=== PATIENT | female | born 1960 | race African-American/Black ===

== ENCOUNTER 2016-11-04 20:49 | Emergency (ER) | payer SELFPAY ==
[~2016-11-04] VITALS: Ht 170.2 cm; Wt 73.9 kg
[~2016-11-04 20:49] MED LIST: ACET-704 PO; CYCL10TA2 PO; HYDR-2758 PO; HYDR50TA6 PO; IBUP-1007 PO; METH750T2 PO
[2016-11-04 21:35] LABS: BASO # 0.1 x10^3/uL (0.0-0.2); BASO % 1 % (0-3); EOS % 1 % (0-3); HEMATOCRIT 41.8 % (36.0-47.0); HEMOGLOBIN 14.4 g/dL (12.0-15.5); LYMPH # 2.7 x10^3/uL (1.0-4.8); LYMPH % 43 % (24-48); MEAN CORPUSCULAR HEMOGLOBIN 36 pg (25-35); MEAN CORPUSCULAR HGB CONC 35 g/dL (31-37); MEAN CORPUSCULAR VOLUME 104 fL (79-100); MONO % 8 % (0-9); NEUT % 48 % (31-73); PLATELET COUNT 188 x10^3/uL (140-400); RED BLOOD COUNT 4.03 x10^6/uL (3.50-5.40); WHITE BLOOD COUNT 6.4 x10^3/uL (4.0-11.0)
[2016-11-04] MEDS ORDERED: CYCLOBENZAPRINE 10 MG TABLET. PO ONE (21:45)
[2016-11-04] MEDS ORDERED: KETOROLAC 15 MG/ML VIAL. IV ONE (21:45)
[2016-11-04 21:49] LABS: CALCIUM 9.5 mg/dL (8.5-10.1); CREATININE 0.8 mg/dL (0.6-1.0); GFR 89.5; POTASSIUM 3.1 mmol/L (3.5-5.1)
[2016-11-04 21:55] LABS: ALBUMIN 4.3 g/dL (3.4-5.0); ALBUMIN/GLOBULIN RATIO 1.1 (1.0-1.7); TOTAL BILIRUBIN 0.4 mg/dL (0.2-1.0); TOTAL PROTEIN 8.2 g/dL (6.4-8.2)
[2016-11-04] MEDS ORDERED: TRAM-48 PO (22:13)
[2016-11-04] MEDS ORDERED: CYCL10TA2 PO (22:13)
[2016-11-04] MEDS ORDERED: IBUP-1007 PO (22:13)
--- NOTE | 2016-11-04 22:13 | PHYS DOC ---
Past Medical History Past Medical History: Heart Disease, Hypertension Past Surgical History: Pacemaker Alcohol Use: Occasionally Drug Use: None Adult General Chief Complaint Chief Complaint: CHEST PAIN HPI HPI Patient is a 56 year old female who presents to the ER today complaining of sciatica pain. Patient is complaining of pain to her left lower extremity radiating down to her toes. Patient reports that she's had this pain for approximately 2 weeks now and is getting worse. Patient reports that she has been taking ibuprofen and Tylenol without any significant relief in her discomfort. Patient denies any other symptomatology other than some right-sided chest wall pain over the site of her new pacemaker that was placed in 2014. Patient denies any fevers shakes chills nausea vomiting diarrhea. Patient denies any loss of bowel or bladder function. Patient denies any weakness to her lower extremities. Patient reports that she has been diagnosed with sciatica in the past and usually ibuprofen helps however over the last couple weeks and has not helped. Patient reports that she has a history of heart problems which required a pacemaker but she is not able to elicit any further. Patient denies any history of hypertension diabetes CHF COPD liver longer kidney problems. Patient denies any abdominal surgeries. Patient does smoke and does drink no drugs. Patient is not allergic to any medications. Patient reports that she has been drinking earlier today with her secondary to celebrating for a upcoming wedding. Physical exam is a well-developed well-nourished female in no acute distress who presents here today with pain to her left lower starry. Patient has tenderness to palpation to her left sciatic region. Patient's neurological exam was normal. Patient's motor strength is 5 out of 5. Sensation intact to light touch and pinprick. Patient also is tenderness to palpation to her right anterior chest wall. Patient's ER workup was significant for normal labs. Patient had a CBC chemistry and troponin that were all normal. Patient's chest x-ray was unremarkable. Patient's EKG revealed normal sinus rhythm at a heart rate of [address]-T wave abnormalities. There is no evidence of ST elevation [place]. Assessment and plan This is a 56-year-old female who presents to the ER today complaining of sciatica type pain. Patient given Toradol IV as well as Flexeril. Patient be discharged home with a prescription for Flexeril and ibuprofen and Ultram to assist her until she is able see Dr. Dumont. Hypokalemia patient will be given by mouth potassium and will be instructed on dietary supplementation. Noncardiac chest pain. Patient's reproducible anterior chest wall pain on the right side. This is over the site of her pacemaker. This pain will also be treated with the ibuprofen and Ultram that she is receiving for her hip. Patient be discharged home in stable condition. Return precautions were discussed with the patient. Tobacco cessation as well as alcohol cessation were discussed with the patient as well as her significant other. Review of Systems Review of Systems Constitutional: Denies fever or chills [] Eyes: Denies change in visual acuity, redness, or eye pain [] All other review systems are negative except as documented in the history of present illness portion Current Medications Current Medications Current Medications Medications (Trade) Dose Ordered Sig/Evelyne Start Time Stop Time Status Last Admin Dose Admin Cyclobenzaprine HCl (Flexeril) 10 mg 1X ONCE 11/04/16 21:45 11/04/16 21:46 DC 11/04/16 21:48 10 MG Ketorolac Tromethamine (Toradol) 15 mg 1X ONCE 11/04/16 21:45 11/04/16 21:46 DC 11/04/16 21:48 15 MG Allergies Allergies Allergies Coded Allergies Type Severity Reaction Last Updated Verified No Known Drug Allergies 08/17/13 No Physical Exam Physical Exam Constitutional: Well developed, well nourished, no acute distress, non-toxic appearance. [] HENT: Normocephalic, atraumatic, bilateral external ears normal, oropharynx moist, no oral exudates, nose normal. [] Eyes: PERRLA, EOMI, conjunctiva normal, no discharge. [] Neck: Normal range of motion, no tenderness, supple, no stridor. [] Cardiovascular:Heart rate regular rhythm, Lungs & Thorax: Bilateral breath sounds clear to auscultation 100% reproducible tenderness to palpation to her right anterior chest wall. [] Abdomen: Bowel sounds normal, soft, no tenderness, no masses, no pulsatile masses. [] Skin: Warm, dry, no erythema, no rash. [] Back: No tenderness, no CVA tenderness. [] Extremities: See above., no cyanosis, no clubbing, ROM intact, no edema. [] Neurologic: Alert and oriented X 3, normal motor function, normal sensory function, no focal deficits noted. [] Psychologic: Affect normal, judgement normal, mood normal. [] Current Patient Data Vital Signs Vital Signs Date Time Temp Pulse Resp B/P (MAP) Pulse Ox O2 Delivery O2 Flow Rate FiO2 11/04/16 21:10 97.7 73 20 156/98 (117) 98 Room Air 97.7 Lab Values Laboratory Tests Test 11/04/16 21:22 White Blood Count 6.4 x10^3/uL (4.0-11.0) Red Blood Count 4.03 x10^6/uL (3.50-5.40) Hemoglobin 14.4 g/dL (12.0-15.5) Hematocrit 41.8 % (36.0-47.0) Mean Corpuscular Volume 104 fL (79-100) H Mean Corpuscular Hemoglobin 36 pg (25-35) H Mean Corpuscular Hemoglobin Concent 35 g/dL (31-37) Red Cell Distribution Width 15.0 % (11.5-14.5) H Platelet Count 188 x10^3/uL (140-400) Neutrophils (%) (Auto) 48 % (31-73) Lymphocytes (%) (Auto) 43 % (24-48) Monocytes (%) (Auto) 8 % (0-9) Eosinophils (%) (Auto) 1 % (0-3) Basophils (%) (Auto) 1 % (0-3) Neutrophils # (Auto) 3.1 x10^3uL (1.8-7.7) Lymphocytes # (Auto) 2.7 x10^3/uL (1.0-4.8) Monocytes # (Auto) 0.5 x10^3/uL (0.0-1.1) Eosinophils # (Auto) 0.1 x10^3/uL (0.0-0.7) Basophils # (Auto) 0.1 x10^3/uL (0.0-0.2) Sodium Level 144 mmol/L (136-145) Potassium Level 3.1 mmol/L (3.5-5.1) L Chloride Level 101 mmol/L (98-107) Carbon Dioxide Level 26 mmol/L (21-32) Anion Gap 17 (6-14) H Blood Urea Nitrogen 10 mg/dL (7-20) Creatinine 0.8 mg/dL (0.6-1.0) Estimated GFR (Cockcroft-Gault) 89.5 BUN/Creatinine Ratio 13 (6-20) Glucose Level 85 mg/dL (70-99) Calcium Level 9.5 mg/dL (8.5-10.1) Total Bilirubin 0.4 mg/dL (0.2-1.0) Aspartate Amino Transferase (AST) 95 U/L (15-37) H Alanine Aminotransferase (ALT) 62 U/L (14-59) H Alkaline Phosphatase 110 U/L (46-116) Troponin I Quantitative < 0.017 ng/mL (0.000-0.055) Total Protein 8.2 g/dL (6.4-8.2) Albumin 4.3 g/dL (3.4-5.0) Albumin/Globulin Ratio 1.1 (1.0-1.7) Laboratory Tests 11/04/16 21:22 Laboratory Tests 11/04/16 21:22 EKG EKG [] Radiology/Procedures Radiology/Procedures [] Course & Med Decision Making Course & Med Decision Making Pertinent Labs and Imaging studies reviewed. (See chart for details) [] Dragon Disclaimer Dragon Disclaimer This electronic medical record was generated, in whole or in part, using a voice recognition dictation system. Departure Departure Impression: Primary Impression: Sciatica, left side Additional Impressions: Non-cardiac chest pain Hypokalemia Disposition: 01 HOME, SELF-CARE Condition: IMPROVED Referrals: HOLLIE DUMONT MD (PCP) Patient Instructions: Hypokalemia, Sciatica Scripts Tramadol Hcl (ULTRAM) 50 Mg Tablet 1 TAB PO Q6HRS, #14 TAB Prov: FLORENCE ESCOBAR MD 11/04/16 Ibuprofen (IBUPROFEN) 600 Mg Tablet 600 MG PO PRN Q6HRS Y for PAIN, #20 TAB Prov: FLORENCE ESCOBAR MD 11/04/16 Cyclobenzaprine Hcl (CYCLOBENZAPRINE HCL) 10 Mg Tablet 10 MG PO TID Y for MUSCLE PAIN, #20 TAB Prov: FLORENCE ESCOBAR MD 11/04/16 Problem Qualifiers FLORENCE ESCOBAR MD Nov 04, 2016 22:13
[2016-11-04 22:15] VITALS: BP 149/84
[2016-11-04] MEDS ORDERED: POTASSIUM CHLORIDE 20 MEQ TABLET.ER. PO ONE (22:15)
--- NOTE | 2016-11-05 08:22 | RAD ---
AP portable chest radiograph 11/04/2016 Clinical History: Chest pain since earlier today. An AP portable erect digital radiograph of the chest was obtained. Comparison study is dated 12/07/2013. A pacemaker is unchanged in position. The cardiac silhouette is borderline enlarged. The thoracic aorta is tortuous. Atherosclerotic calcification of the thoracic aorta is seen. No acute pulmonary infiltrate is noted. No pneumothorax or pleural effusion is seen. Degenerative changes are seen involving the thoracic spine and both shoulders. Impression: No acute abnormality is seen.
--- NOTE | 2016-11-05 09:47 | EKG ---
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
== END 2016-11-04 22:25 | disposition home or self-care (01) ==
LOC: ER 20:49
DX: M54.32 Sciatica, left side (principal); R07.89 Other chest pain; E87.6 Hypokalemia; M79.605 Pain in left leg; I11.9 Hypertensive heart disease without heart failure; Z95.0 Presence of cardiac pacemaker
CPT/HCPCS: 36415; 71010; 80053; 84484; 85027; 93005; 96374; 99285; J1885

== ENCOUNTER 2017-03-15 08:06 | Emergency (ER) | payer SELFPAY ==
[~2017-03-15] VITALS: Ht 167.6 cm; Wt 83.5 kg
[~2017-03-15 08:06] MED LIST changes: +TRAM-48 PO
--- NOTE | 2017-03-15 08:12 | PHYS DOC ---
Past Medical History Past Medical History: Heart Disease, Hypertension Past Surgical History: Pacemaker Alcohol Use: Occasionally Drug Use: None Adult General Chief Complaint Chief Complaint: FACE PROBLEM HPI HPI Patient is a 56 year old -Mongol[place] female who presents with facial swelling. She states that her dental implants the frontal aspect of her teeth broke out about a week and a half ago. She states she saw dentist a few days ago and had initial consultation as an appointment on Thursday. She states yesterday morning she woke up and noticed facial swelling with her eye just about swollen shut and the right side of her face, around her right cheek. She used hot packs and states actually the swelling has improved today. She denies any fevers chills nausea or vomiting, or changes in her voice. She states she is breathing fine and has no trouble swallowing. She is concerned that there could be an infection from her teeth and came to the ER. He denies being on any medications per she has been taking Advil [id number] for her pain and swelling. She is on no medications and therefore I do not suspect angioedema. Review of Systems Review of Systems Constitutional: Denies fever or chills [] Eyes: Denies change in visual acuity, redness, or eye pain [] HENT: Denies nasal congestion or sore throat [] Respiratory: Denies cough or shortness of breath [] Cardiovascular: No additional information not addressed in HPI [] GI: Denies abdominal pain, nausea, vomiting, bloody stools or diarrhea [] : Denies dysuria or hematuria [] Musculoskeletal: Denies back pain or joint pain [] Integument: Denies rash or skin lesions [] Neurologic: Denies headache, focal weakness or sensory changes [] Endocrine: Denies polyuria or polydipsia [] Current Medications Current Medications Current Medications Medications (Trade) Dose Ordered Sig/Evelyne Start Time Stop Time Status Last Admin Dose Admin Clindamycin HCl (Cleocin) 300 mg 1X ONCE 03/15/17 08:45 03/15/17 08:46 03/15/17 08:42 300 MG Allergies Allergies Allergies Coded Allergies Type Severity Reaction Last Updated Verified No Known Drug Allergies 08/17/13 No Physical Exam Physical Exam Constitutional: Well developed, well nourished, no acute distress, non-toxic appearance. [] HENT: Normocephalic, atraumatic, bilateral external ears normal, oropharynx moist, no oral exudates, nose normal. Tender palpation over the right maxillary sinus with swelling below the eye to the upper lip. No Adán angina appreciated , no cervical lymphadenopathy appreciated, posterior pharynx clear. Eyes: PERRLA, EOMI, conjunctiva normal, no discharge. [] Neck: Normal range of motion, no tenderness, supple, no stridor. [] Cardiovascular:Heart rate regular rhythm, no murmur [] Lungs & Thorax: Bilateral breath sounds clear to auscultation [] Abdomen: Bowel sounds normal, soft, no tenderness, no masses, no pulsatile masses. [] Skin: Warm, dry, no erythema, no rash. [] Back: No tenderness, no CVA tenderness. [] Extremities: No tenderness, no cyanosis, no clubbing, ROM intact, no edema. [] Neurologic: Alert and oriented X 3, normal motor function, normal sensory function, no focal deficits noted. [] Psychologic: Affect normal, judgement normal, mood normal. [] Current Patient Data Vital Signs Vital Signs Date Time Temp Pulse Resp B/P (MAP) Pulse Ox O2 Delivery O2 Flow Rate FiO2 03/15/17 08:27 98.6 90 19 153/99 (117) 100 Room Air 98.6 EKG EKG [] Radiology/Procedures Radiology/Procedures [] Impressions: Dental infection with facial swelling Course & Med Decision Making Course & Med Decision Making Pertinent Labs and Imaging studies reviewed. (See chart for details) Vitals are normal, she does not have a fever. She does not have trismus, change in her voice, any signs of Adán angina. We'll start with clindamycin 300 mg and send her home with the same. She is to return back to ER if she has any worsening pain, fevers, trouble swallowing, breathing, changes in her voice. She has a follow-up on Thursday with her dentist. She is agreeable to the plan of being discharged in stable condition at this time. Dragon Disclaimer Dragon Disclaimer This electronic medical record was generated, in whole or in part, using a voice recognition dictation system. Departure Departure Impression: Primary Impression: Dental infection Disposition: HOME, SELF-CARE Condition: STABLE Referrals: HOLLIE EVANS MD (PCP) Patient Instructions: Dental Abscess Additional Instructions: Your swelling in the face is likely because of your dental infection. You will need take and antibiotics for the next 10 days. We gave you the first dose here. You can take Advil 200mg tablets, 3 tablets every 8 hours for the next 4- 5 days for pain and swelling. When you're taking this high dose of Advil please drink a few extra glasses of water. You will need to get your antibiotics filled within next several hours and be sure to get 3 doses in today. You will need to follow-up with your dentist on Thursday. Return to the ER if you have trouble swallowing, troubles talking, he had any changes in her voice such as hoarseness or other concerns. He develop high fevers uncontrolled nausea vomiting then return back to ER. Scripts Clindamycin Hcl (CLINDAMYCIN HCL) 300 Mg Capsule 1 CAP PO TID, #30 CAP Prov: PRATIK ROSA MD 03/15/17 PRATIK ROSA MD Mar 15, 2017 08:12
[2017-03-15 08:27] VITALS: BP 153/99
[2017-03-15] MEDS ORDERED: CLINDAMYCIN HCL 150 MG CAPSULE. PO ONE (08:45)
[2017-03-15] MEDS ORDERED: CLIN300C8 PO (08:51)
== END 2017-03-15 08:54 | disposition home or self-care (01) ==
LOC: ER 08:06
DX: K04.7 Periapical abscess without sinus (principal); I11.9 Hypertensive heart disease without heart failure; Z95.0 Presence of cardiac pacemaker
CPT/HCPCS: 99283

== ENCOUNTER 2017-04-30 20:48 | Emergency (ER) | payer SELFPAY ==
[~2017-04-30] VITALS: Ht 165.1 cm; Wt 83.5 kg
[~2017-04-30 20:48] MED LIST changes: +CLIN300C8 PO
--- NOTE | 2017-04-30 21:07 | PHYS DOC ---
Past Medical History Past Medical History: Pancreatitis Additional Past Medical Histor: DAILY ETOH (05/10) Past Surgical History: Pacemaker Alcohol Use: Heavy Additional Information: DAILY 1 "GINNA SANCHEZ" Drug Use: None Adult General Chief Complaint Chief Complaint: CHEST PAIN HPI HPI Patient is a 56 year old -[place] female is who presents with right sided chest pain shortness of breath. She states the pain is directly over her pacemaker as per she states she's never had pain like this before. She states this started today. Nothing she does makes it better or worse. She states she vomited some blood earlier today. She's drinks daily. She states she follows with her pacemaker. She denies any fevers chills or diarrhea. Review of Systems Review of Systems Constitutional: Denies fever or chills [] Eyes: Denies change in visual acuity, redness, or eye pain [] HENT: Denies nasal congestion or sore throat [] Respiratory: Denies cough, positive for shortness of breath [] Cardiovascular: No additional information not addressed in HPI [] GI: Denies abdominal pain, nausea, vomiting, bloody stools or diarrhea [] : Denies dysuria or hematuria [] Musculoskeletal: Denies back pain or joint pain [] Integument: Denies rash or skin lesions [] Neurologic: Denies headache, focal weakness or sensory changes [] Endocrine: Denies polyuria or polydipsia [] All other systems were reviewed and found to be within normal limits, except as documented in this note. Current Medications Current Medications Current Medications Medications (Trade) Dose Ordered Sig/Evelyne Start Time Stop Time Status Last Admin Dose Admin Fentanyl Citrate (Fentanyl 2ml Vial) 50 mcg PRN Q15MIN PRN 04/30/17 21:15 05/01/17 21:14 04/30/17 21:25 50 MCG Nitroglycerin (Nitrostat) 0.4 mg PRN Q5MIN PRN 04/30/17 21:15 05/01/17 21:14 04/30/17 21:25 0.4 MG Sodium Chloride 1,000 ml @ 1,000 mls/hr Q1H 04/30/17 21:30 04/30/17 22:29 04/30/17 21:25 1,000 MLS/HR Allergies Allergies Allergies Coded Allergies Type Severity Reaction Last Updated Verified No Known Drug Allergies 08/17/13 No Physical Exam Physical Exam Constitutional: Well developed, well nourished, no acute distress, non-toxic appearance. [] HENT: Normocephalic, atraumatic, bilateral external ears normal, oropharynx moist, no oral exudates, nose normal. [] Eyes: PERRLA, EOMI, conjunctiva normal, no discharge. [] Neck: Normal range of motion, no tenderness, supple, no stridor. [] Cardiovascular:Heart rate regular rhythm, no murmur [] Lungs & Thorax: Bilateral breath sounds clear to auscultation [] Abdomen: Bowel sounds normal, soft, no tenderness, no masses, no pulsatile masses. [] Skin: Warm, dry, no erythema, no rash. [] Back: No tenderness, no CVA tenderness. [] Extremities: No tenderness, no cyanosis, no clubbing, ROM intact, no edema. [] Neurologic: Alert and oriented X 3, normal motor function, normal sensory function, no focal deficits noted. [] Psychologic: Affect normal, judgement normal, mood normal. [] Current Patient Data Vital Signs Vital Signs Date Time Temp Pulse Resp B/P (MAP) Pulse Ox O2 Delivery O2 Flow Rate FiO2 04/30/17 21:25 20 04/30/17 21:25 79 149/93 04/30/17 20:48 98.1 97 Room Air 98.1 Lab Values Laboratory Tests Test 04/30/17 20:15 04/30/17 21:05 04/30/17 21:40 D-Dimer (Vandana) 0.36 ug/mlFEU (0.00-0.50) White Blood Count 7.7 x10^3/uL (4.0-11.0) Red Blood Count 4.43 x10^6/uL (3.50-5.40) Hemoglobin 14.5 g/dL (12.0-15.5) Hematocrit 42.7 % (36.0-47.0) Mean Corpuscular Volume 96 fL (79-100) Mean Corpuscular Hemoglobin 33 pg (25-35) Mean Corpuscular Hemoglobin Concent 34 g/dL (31-37) Red Cell Distribution Width 15.7 % (11.5-14.5) H Platelet Count 250 x10^3/uL (140-400) Neutrophils (%) (Auto) 49 % (31-73) Lymphocytes (%) (Auto) 43 % (24-48) Monocytes (%) (Auto) 7 % (0-9) Eosinophils (%) (Auto) 1 % (0-3) Basophils (%) (Auto) 1 % (0-3) Neutrophils # (Auto) 3.8 x10^3uL (1.8-7.7) Lymphocytes # (Auto) 3.3 x10^3/uL (1.0-4.8) Monocytes # (Auto) 0.5 x10^3/uL (0.0-1.1) Eosinophils # (Auto) 0.0 x10^3/uL (0.0-0.7) Basophils # (Auto) 0.1 x10^3/uL (0.0-0.2) Prothrombin Time 13.5 SEC (11.7-14.0) Prothrombin Time INR 1.1 (0.8-1.1) Sodium Level 142 mmol/L (136-145) Potassium Level 3.4 mmol/L (3.5-5.1) L Chloride Level 102 mmol/L (98-107) Carbon Dioxide Level 20 mmol/L (21-32) L Anion Gap 20 (6-14) H Blood Urea Nitrogen 13 mg/dL (7-20) Creatinine 0.7 mg/dL (0.6-1.0) Estimated GFR (Cockcroft-Gault) 104.4 Glucose Level 81 mg/dL (70-99) Calcium Level 9.6 mg/dL (8.5-10.1) Magnesium Level 1.7 mg/dL (1.8-2.4) L Total Bilirubin 0.5 mg/dL (0.2-1.0) Direct Bilirubin 0.2 mg/dL (0.0-0.2) Aspartate Amino Transferase (AST) 44 U/L (15-37) H Alanine Aminotransferase (ALT) 36 U/L (14-59) Alkaline Phosphatase 97 U/L (46-116) Creatine Kinase 202 U/L (26-192) H Creatine Kinase MB (Mass) 0.5 ng/mL (0.0-3.6) Creatine Kinase MB Relative Index 0.2 % (0-4) Troponin I Quantitative < 0.017 ng/mL (0.000-0.055) FI-Wty-H-Type Natriuretic Peptide 88 pg/mL (0-124) Total Protein 8.4 g/dL (6.4-8.2) H Albumin 4.1 g/dL (3.4-5.0) Lipase 134 U/L (73-393) Stool Occult Blood Negative (NEG) Urine Opiates Screen Neg (NEG) Urine Methadone Screen Neg (NEG) Urine Barbiturates Neg (NEG) Urine Phencyclidine Screen Neg (NEG) Urine Amphetamine/Methamphetamine Neg (NEG) Urine Benzodiazepines Screen Neg (NEG) Urine Cocaine Screen Neg (NEG) Urine Cannabinoids Screen Neg (NEG) Urine Ethyl Alcohol Pos (NEG) Laboratory Tests 04/30/17 21:05 Laboratory Tests 04/30/17 21:05 EKG EKG EKG shows sinus rhythm [address] elevations, T-wave inversions noted in the precordial leads V1 through V4, normal axis, QTC 507 ms, as interpreted by me. Interpretation Time: 2104 Radiology/Procedures Radiology/Procedures Chest x-ray does not show any focal consolidations, bony abnormalities, pneumothorax, as interpreted by me. Impressions: Chest pain Alcohol abuse Alcoholic ketoacidosis Course & Med Decision Making Course & Med Decision Making Pertinent Labs and Imaging studies reviewed. (See chart for details) EKG has T-wave inversions in the lateral leads. She states her pains around her pacemaker. Her d-dimer is negative. She does have a mild acidosis is likely starvation ketoacidosis from alcohol abuse. She states she drinks more alcohol than she eats. I recommend she be admitted to be observed received IV fluids. She did receive 1 L prior to signing out AGAINST MEDICAL ADVICE. She states she feels better now and wants to go home. I explained to her that she might be having a heart attack, as she has T-wave inversions in her EKG is abnormal and she has a acidosis that I cannot explain fully at this time is likely due to her alcohol abuse. She states she understands the risk and still wants to go home so she signed AMA form. Halina with nursing was in the room when I explained these risks to her. I also explained to her that she is more well controlled return back to ER if she changes her mind if she has worsening symptoms or other concerns. Dragon Disclaimer Dragon Disclaimer This electronic medical record was generated, in whole or in part, using a voice recognition dictation system. Departure Departure Impression: Primary Impression: Chest pain Disposition: 07 AGAINST MEDICAL ADVICE Condition: STABLE Referrals: HOLLIE EVANS MD (PCP) PRATIK ROSA MD Apr 30, 2017 21:07
[2017-04-30] MEDS ORDERED: NITROGLYCERIN SUBLINGUAL 0.4 MG BOTTLE OF 25. SL PRN (21:15)
[2017-04-30] MEDS ORDERED: fentaNYL PF VIAL 100 MCG/2 ML VIAL IV PRN (21:15)
[2017-04-30 21:17] LABS: BASO # 0.1 x10^3/uL (0.0-0.2); BASO % 1 % (0-3); EOS % 1 % (0-3); HEMATOCRIT 42.7 % (36.0-47.0); HEMOGLOBIN 14.5 g/dL (12.0-15.5); LYMPH # 3.3 x10^3/uL (1.0-4.8); LYMPH % 43 % (24-48); MEAN CORPUSCULAR HEMOGLOBIN 33 pg (25-35); MEAN CORPUSCULAR HGB CONC 34 g/dL (31-37); MEAN CORPUSCULAR VOLUME 96 fL (79-100); MONO % 7 % (0-9); NEUT % 49 % (31-73); PLATELET COUNT 250 x10^3/uL (140-400); RED BLOOD COUNT 4.43 x10^6/uL (3.50-5.40); RED CELL DISTRIBUTION WIDTH 15.7 % (11.5-14.5); WHITE BLOOD COUNT 7.7 x10^3/uL (4.0-11.0)
[2017-04-30 21:26] LABS: INR 1.1 (0.8-1.1); PROTHROMBIN TIME PATIENT 13.5 SEC (11.7-14.0)
[2017-04-30 21:29] LABS: CALCIUM 9.6 mg/dL (8.5-10.1); CREATININE 0.7 mg/dL (0.6-1.0); GFR 104.4; POTASSIUM 3.4 mmol/L (3.5-5.1)
[2017-04-30] MEDS ORDERED: IV NORMAL SALINE 1000ML BAG 1,000 ML IV SCH (21:30)
[2017-04-30 21:35] LABS: ALBUMIN 4.1 g/dL (3.4-5.0); DIRECT BILIRUBIN 0.2 mg/dL (0.0-0.2); MAGNESIUM 1.7 mg/dL (1.8-2.4); TOTAL BILIRUBIN 0.5 mg/dL (0.2-1.0); TOTAL PROTEIN 8.4 g/dL (6.4-8.2)
[2017-04-30 21:42] LABS: CKMB MASS 0.5 ng/mL (0.0-3.6)
[2017-04-30 21:55] LABS: BARBITURATES NEG (NEG); BENZODIAZEPINES NEG (NEG); CANNABINOIDS NEG (NEG); COCAINE NEG (NEG); METHADONE NEG (NEG); OPIATES NEG (NEG); PHENCYCLIDINE NEG (NEG)
[2017-04-30 21:56] LABS: NEG OBC FOB NEG; POS OBC FOB POS
[2017-04-30 22:15] VITALS: BP 103/74
--- NOTE | 2017-05-01 06:21 | EKG ---
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
--- NOTE | 2017-05-01 08:03 | RAD ---
Portable chest, 04/30/2017: History: Right-sided chest pain Comparison is made to a study from 11/28/2016. A right-sided transvenous pacemaker remains in place with 2 leads extending into the right heart. The heart size and pulmonary vascularity are normal. No pulmonary infiltrates are seen. There is no evidence of pleural fluid. IMPRESSION: No acute cardiopulmonary abnormality is detected.
== END 2017-04-30 22:15 | disposition left against medical advice (07) ==
LOC: ER 20:48
DX: R07.89 Other chest pain (principal); F10.10 Alcohol abuse, uncomplicated; Z95.0 Presence of cardiac pacemaker
CPT/HCPCS: 36415; 51701; 71010; 80048; 80076; 80307; 82274; 82553; 83690; 83735; 83880; 84484; 85025; 85379; 85610; 93005; 96361; 96374; 99285; J3010; J7030; G0479

== ENCOUNTER 2017-12-03 15:51 | Emergency (ER) | payer SELFPAY | END 2017-12-03 16:30 | disposition home or self-care (01) | LOC: ER 15:51 | DX: M54.30 Sciatica, unspecified side (principal); Z95.0 Presence of cardiac pacemaker | CPT/HCPCS: 99283; 99284 ==

== ENCOUNTER 2018-01-28 08:16 | Emergency (ER) | payer SELFPAY ==
[~2018-01-28] VITALS: Ht 167.6 cm; Wt 83.5 kg
[~2018-01-28 08:16] MED LIST changes: +METH4TAB2 PO
[2018-01-28] MEDS ORDERED: IV NORMAL SALINE 1000ML BAG 1,000 ML IV SCH (08:33)
[2018-01-28] MEDS ORDERED: ONDANSETRON PF 4 MG/2 ML VIAL. IV ONE (08:45)
[2018-01-28] MEDS ORDERED: FAMOTIDINE 20 MG/2 ML VIAL IVP ONE (08:45)
[2018-01-28 08:51] LABS: BASO # 0.1 x10^3/uL (0.0-0.2); BASO % 1 % (0-3); EOS % 0 % (0-3); HEMATOCRIT 42.7 % (36.0-47.0); LYMPH % 5 % (24-48); MEAN CORPUSCULAR HEMOGLOBIN 34 pg (25-35); MEAN CORPUSCULAR HGB CONC 35 g/dL (31-37); MEAN CORPUSCULAR VOLUME 98 fL (79-100); MONO # 0.8 x10^3/uL (0.0-1.1); MONO % 5 % (0-9); NEUT # 16.3 x10^3uL (1.8-7.7); NEUT % 89 % (31-73); PLATELET COUNT 223 x10^3/uL (140-400); RED BLOOD COUNT 4.37 x10^6/uL (3.50-5.40); RED CELL DISTRIBUTION WIDTH 15.3 % (11.5-14.5); WHITE BLOOD COUNT 18.2 x10^3/uL (4.0-11.0)
[2018-01-28 09:01] LABS: CALCIUM 9.3 mg/dL (8.5-10.1); CREATININE 0.8 mg/dL (0.6-1.0); GFR 89.1; POTASSIUM 3.4 mmol/L (3.5-5.1)
[2018-01-28 09:05] LABS: ALBUMIN 4.1 g/dL (3.4-5.0); ALBUMIN/GLOBULIN RATIO 0.9 (1.0-1.7); TOTAL BILIRUBIN 0.9 mg/dL (0.2-1.0); TOTAL PROTEIN 8.5 g/dL (6.4-8.2)
[2018-01-28 10:58] LABS: BARBITURATES NEG (NEG); BENZODIAZEPINES NEG (NEG); CANNABINOIDS NEG (NEG); COCAINE NEG (NEG); METHADONE NEG (NEG); OPIATES NEG (NEG); PHENCYCLIDINE NEG (NEG)
[2018-01-28 11:00] LABS: AMPHETAMINE/METHAMPHETAMINE NEG (NEG)
[2018-01-28 11:16] LABS: BILIRUBIN,URINE SMALL (NEG); CLARITY,URINE CLEAR; COLOR,URINE AMBER; NITRITE,URINE NEGATIVE (NEG); PROTEIN,URINE 30 mg/dL (NEG-TRACE); UROBILINOGEN,URINE 0.2 mg/dL (0.2 mg/dL)
[2018-01-28 11:25] LABS: HYALINE CASTS, URINE MODERATE /HPF; SQUAMOUS EPITHELIAL CELL,UR FEW /LPF
[2018-01-28 11:26] LABS: BACTERIA,URINE FEW /HPF (0-FEW); RBC,URINE OCC /HPF (0-2); WBC,URINE OCC /HPF (0-4)
[2018-01-28] MEDS ORDERED: IOHEXOL 300 MG/ML 100ML VIAL. IV ONE (12:30)
[2018-01-28] MEDS ORDERED: CONTRAST GIVEN. MC PRN (12:30)
[2018-01-28 13:02] LABS: % BANDS 18 % (0-9); % LYMPHS 3 % (24-48); % MONOS 5 % (0-10); % SEGS 74 % (35-66); PLT ESTIMATE ADEQUATE (ADEQUATE)
--- NOTE | 2018-01-28 13:02 | RAD ---
CT of the abdomen and pelvis with contrast 01/28/2018 12:50 PM Indication: ABD PAIN ELEVATED WBC INJ 75ML OMNI 300 NO PREV Comparison study: Abdominal ultrasound November 29, 2016 Technique: Multidetector CT imaging of the abdomen and pelvis was performed following the administration of IV contrast. Findings: The partially visualized lung bases demonstrate no acute abnormality. The liver is diffusely low in attenuation. Findings are nonspecific most commonly reflect hepatic steatosis. A focal area of geographic hypoattenuation is seen in the right hepatic lobe abutting the falciform ligament. While nonspecific this most commonly reflects focal fatty infiltration. Spleen demonstrates multifocal calcified granulomas but is otherwise unremarkable. The right kidney is normal in appearance. The right adrenal gland is unremarkable in appearance. The left adrenal gland is unremarkable in appearance. There is a rounded 1.5 cm cyst in the mid left kidney. Left kidney is otherwise unremarkable. Lack of enteric contrast limits evaluation of the bowel. Infrequent diverticula involving the sigmoid colon are noted. Infrequent diverticula involving the transverse colon are also seen. The entirety of the colon is decompressed. Possible mild diffuse colonic thickening is seen. Evaluation is limited. A mild diffuse colitis could produce this appearance. Infectious and inflammatory etiologies would be most likely. No pneumoperitoneum is identified no significant free fluid is seen in the abdomen or pelvis. No acute osseous changes are seen. IMPRESSION: 1. Though lack of enteric contrast and decompressed state limits evaluation of large bowel. There is possible mild diffuse colonic wall thickening. Mild ortiz colitis could have this appearance. 2. Hepatic steatosis. Geographic focus of hypoattenuation in the right liver along the falciform ligament is also seen which most likely reflects an area of more prominent focal hepatic steatosis is described above. 3. Left renal cyst. CT DOSING PQRS STATEMENT: One or more of the following individualized dose reduction techniques were utilized for this examination: 1. Automated exposure control 2. Adjustment of the mA and/or kV according to patient size 3. Use of iterative reconstruction technique Electronically signed by: Dc Chaney MD (01/28/2018 12:59 PM) [email or web address]
[2018-01-28 13:03] LABS: ANISOCYTOSIS SLIGHT
[2018-01-28 13:14] VITALS: BP 163/86
[2018-01-28] MEDS ORDERED: CIPR500T94 PO (13:15)
--- NOTE | 2018-01-28 13:16 | PHYS DOC ---
Past Medical History Past Medical History: Pancreatitis Additional Past Medical Histor: DAILY ETOH (05/10), SCIATICA Past Surgical History: No Surgical History, Pacemaker Alcohol Use: Heavy Drug Use: None Adult General Chief Complaint Chief Complaint: ABDOMINAL PAIN HPI HPI Patient is a 57 year old female who presents with back pain 1 month that states that it is sciatica and she has been taking Tylenol and ibuprofen for this. Patient states that the pain radiates from her left back down to her left leg and is burning and sharp. Patient states that she had abdominal pain yesterday that was sharp and cramping and started with some nausea and vomiting last night and today. Review of Systems Review of Systems Constitutional: Denies fever or chills [] Eyes: Denies change in visual acuity, redness, or eye pain [] HENT: Denies nasal congestion or sore throat [] Respiratory: Denies cough or shortness of breath [] Cardiovascular: No additional information not addressed in HPI [] GI: lower mid abdominal pain, nausea, vomiting, Denies bloody stools or diarrhea [] : Denies dysuria or hematuria [] Musculoskeletal: Low back pain that radiates down back of left leg or joint pain [] Integument: Denies rash or skin lesions [] Neurologic: Denies headache, focal weakness or sensory changes [] Endocrine: Denies polyuria or polydipsia [] All other systems were reviewed and found to be within normal limits, except as documented in this note. Current Medications Current Medications Current Medications Medications (Trade) Dose Ordered Sig/Evelyne Start Time Stop Time Status Last Admin Dose Admin Famotidine (Pepcid Vial) 20 mg 1X ONCE 01/28/18 08:45 01/28/18 08:46 DC 01/28/18 08:53 20 MG Info (CONTRAST GIVEN -- Rx MONITORING) 1 each PRN DAILY PRN 01/28/18 12:30 01/28/18 13:54 DC Iohexol (Omnipaque 300 Mg/ml) 75 ml 1X ONCE 01/28/18 12:30 01/28/18 12:31 DC 01/28/18 12:45 75 ML Ondansetron HCl (Zofran) 4 mg 1X ONCE 01/28/18 08:45 01/28/18 08:46 DC 01/28/18 08:55 4 MG Sodium Chloride 1,000 ml @ 1,000 mls/hr Q1H 9/6/18 08:33 01/28/18 09:32 DC 01/28/18 08:56 1,000 MLS/HR Allergies Allergies Allergies Coded Allergies Type Severity Reaction Last Updated Verified No Known Drug Allergies 08/17/13 No Physical Exam Physical Exam Constitutional: Well developed, well nourished, no acute distress, non-toxic appearance. [] HENT: Normocephalic, atraumatic, bilateral external ears normal, oropharynx moist, no oral exudates, nose normal. [] Eyes: PERRLA, EOMI, conjunctiva normal, no discharge. [] Neck: Normal range of motion, no tenderness, supple, no stridor. [] Cardiovascular:Heart rate regular rhythm, no murmur [] Lungs & Thorax: Bilateral breath sounds clear to auscultation [] Abdomen: Bowel sounds normal, soft, upper and lower abdominal tenderness, no masses, no pulsatile masses. [] Skin: Warm, dry, no erythema, no rash. [] Back: No tenderness, no CVA tenderness. [] Extremities: No tenderness, no cyanosis, no clubbing, ROM intact, no edema. [] Neurologic: Alert and oriented X 3, normal motor function, normal sensory function, no focal deficits noted. [] Psychologic: Affect normal, judgement normal, mood normal. [] Current Patient Data Vital Signs Vital Signs Date Time Temp Pulse Resp B/P (MAP) Pulse Ox O2 Delivery O2 Flow Rate FiO2 01/28/18 13:14 90 20 163/86 (111) 97 Room Air 01/28/18 08:19 98.9 98.9 Lab Values Laboratory Tests Test 01/28/18 08:39 01/28/18 08:40 01/28/18 10:40 Ethyl Alcohol Level 153 mg/dL (0-10) H White Blood Count 18.2 x10^3/uL (4.0-11.0) H Red Blood Count 4.37 x10^6/uL (3.50-5.40) Hemoglobin 15.0 g/dL (12.0-15.5) Hematocrit 42.7 % (36.0-47.0) Mean Corpuscular Volume 98 fL (79-100) Mean Corpuscular Hemoglobin 34 pg (25-35) Mean Corpuscular Hemoglobin Concent 35 g/dL (31-37) Red Cell Distribution Width 15.3 % (11.5-14.5) H Platelet Count 223 x10^3/uL (140-400) Neutrophils (%) (Auto) 89 % (31-73) H Lymphocytes (%) (Auto) 5 % (24-48) L Monocytes (%) (Auto) 5 % (0-9) Eosinophils (%) (Auto) 0 % (0-3) Basophils (%) (Auto) 1 % (0-3) Neutrophils # (Auto) 16.3 x10^3uL (1.8-7.7) H Lymphocytes # (Auto) 1.0 x10^3/uL (1.0-4.8) Monocytes # (Auto) 0.8 x10^3/uL (0.0-1.1) Eosinophils # (Auto) 0.0 x10^3/uL (0.0-0.7) Basophils # (Auto) 0.1 x10^3/uL (0.0-0.2) Segmented Neutrophils % 74 % (35-66) H Band Neutrophils % 18 % (0-9) H Lymphocytes % 3 % (24-48) L Monocytes % 5 % (0-10) Platelet Estimate Adequate (ADEQUATE) Anisocytosis Slight Sodium Level 141 mmol/L (136-145) Potassium Level 3.4 mmol/L (3.5-5.1) L Chloride Level 98 mmol/L (98-107) Carbon Dioxide Level 21 mmol/L (21-32) Anion Gap 22 (6-14) H Blood Urea Nitrogen 8 mg/dL (7-20) Creatinine 0.8 mg/dL (0.6-1.0) Estimated GFR (Cockcroft-Gault) 89.1 BUN/Creatinine Ratio 10 (6-20) Glucose Level 97 mg/dL (70-99) Calcium Level 9.3 mg/dL (8.5-10.1) Total Bilirubin 0.9 mg/dL (0.2-1.0) Aspartate Amino Transferase (AST) 58 U/L (15-37) H Alanine Aminotransferase (ALT) 50 U/L (14-59) Alkaline Phosphatase 110 U/L (46-116) Total Protein 8.5 g/dL (6.4-8.2) H Albumin 4.1 g/dL (3.4-5.0) Albumin/Globulin Ratio 0.9 (1.0-1.7) L Lipase 66 U/L (73-393) L Urine Collection Type Void Urine Color Aleena Urine Clarity Clear Urine pH 6.0 Urine Specific [place] 1.020 Urine Protein 30 mg/dL (NEG-TRACE) Urine Glucose (UA) Negative mg/dL (NEG) Urine Ketones (Stick) 40 mg/dL (NEG) Urine Blood Negative (NEG) Urine Nitrite Negative (NEG) Urine Bilirubin Small (NEG) Urine Urobilinogen Dipstick 0.2 mg/dL (0.2 mg/dL) Urine Leukocyte Esterase Negative (NEG) Urine RBC Occ /HPF (0-2) Urine WBC Occ /HPF (0-4) Urine Squamous Epithelial Cells Few /LPF Urine Bacteria Few /HPF (0-FEW) Urine Hyaline Casts Moderate /HPF Urine Mucus Marked /LPF Urine Opiates Screen Neg (NEG) Urine Methadone Screen Neg (NEG) Urine Barbiturates Neg (NEG) Urine Phencyclidine Screen Neg (NEG) Urine Amphetamine/Methamphetamine Neg (NEG) Urine Benzodiazepines Screen Neg (NEG) Urine Cocaine Screen Neg (NEG) Urine Cannabinoids Screen Neg (NEG) Urine Ethyl Alcohol Pos (NEG) Laboratory Tests 01/28/18 08:40 Laboratory Tests 01/28/18 08:40 EKG EKG [] Radiology/Procedures Radiology/Procedures Follow up primary care[] Impressions: [facility] [address] [place] [address] IMAGING REPORT Signed PATIENT: LIDNSAY DYSON ACCOUNT: [id number] : 1960 LOCATION: ER AGE: 57 SEX: F EXAM STATUS: REG ER ORD. PHYSICIAN: SOPHIE LIN APRN REASON: Abdominal pain/ elevated white count PROCEDURE: CT ABD PELV W/ IV CONTRST ONLY CT of the abdomen and pelvis with contrast 01/28/2018 12:50 PM Indication: ABD PAIN ELEVATED WBC INJ 75ML OMNI 300 NO PREV Comparison study: Abdominal ultrasound November 29, 2016 Technique: Multidetector CT imaging of the abdomen and pelvis was performed following the administration of IV contrast. Findings: The partially visualized lung bases demonstrate no acute abnormality. The liver is diffusely low in attenuation. Findings are nonspecific most commonly reflect hepatic steatosis. A focal area of geographic hypoattenuation is seen in the right hepatic lobe abutting the falciform ligament. While nonspecific this most commonly reflects focal fatty infiltration. Spleen demonstrates multifocal calcified granulomas but is otherwise unremarkable. The right kidney is normal in appearance. The right adrenal gland is unremarkable in appearance. The left adrenal gland is unremarkable in appearance. There is a rounded 1.5 cm cyst in the mid left kidney. Left kidney is otherwise unremarkable. Lack of enteric contrast limits evaluation of the bowel. Infrequent diverticula involving the sigmoid colon are noted. Infrequent diverticula involving the transverse colon are also seen. The entirety of the colon is decompressed. Possible mild diffuse colonic thickening is seen. Evaluation is limited. A mild diffuse colitis could produce this appearance. Infectious and inflammatory etiologies would be most likely. No pneumoperitoneum is identified no significant free fluid is seen in the abdomen or pelvis. No acute osseous changes are seen. IMPRESSION: 1. Though lack of enteric contrast and decompressed state limits evaluation of large bowel. There is possible mild diffuse colonic wall thickening. Mild ortiz colitis could have this appearance. 2. Hepatic steatosis. Geographic focus of hypoattenuation in the right liver along the falciform ligament is also seen which most likely reflects an area of more prominent focal hepatic steatosis is described above. 3. Left renal cyst. CT DOSING PQRS STATEMENT: One or more of the following individualized dose reduction techniques were utilized for this examination: 1. Automated exposure control 2. Adjustment of the mA and/or kV according to patient size 3. Use of iterative reconstruction technique Electronically signed by: Dc Soto MD (01/28/2018 12:59 PM) [email or web address] DICTATED and SIGNED BY: DC SOTO MD DATE: 01/28/18 6514 Course & Med Decision Making Course & Med Decision Making Upon examination patient has upper and lower Lopeno tenderness that she rates an 8 out of 10. Patient states she has chronic low back pain and sciatica has been going on for the last month that she's been taking Tylenol and ibuprofen for but is not getting any better. Patient states the sharp burning sensation runs from her left lower back down her left leg. Patient has no extremity edema. Patient denies chest pain, shortness of air, diarrhea, urinary symptoms. She is afebrile. She states that she is alcoholic and drinks daily. Since blood alcohol level was 153. Patient states she takes no medications daily and has no allergies. Patient does have a pacemaker that was placed in 2005 but no longer sees etiology and she hasn't seen her primary care Dr. Peace in 2 years. Patient is neurologically intact and alert and oriented. Patient is steady on her feet. Patient's white blood cell count is 18.[address] pelvis and abdomen show 1. Though lack of enteric contrast and decompressed state limits evaluation of large bowel. There is possible mild diffuse colonic wall thickening. Mild ortiz colitis could have this appearance.2. Hepatic steatosis. Geographic focus of hypoattenuation in the right liver along the falciform ligament is also seen which most likely reflects an area of more prominent focal hepatic steatosis is described above. 3. Left renal cyst. Patient is given Normal saline, zofran, and toradol for pain. Patient is treated with ciprofloxacin antibiotic and sent home and told she should follow-up with her primary care doctor. Patient is discharged in stable condition and in no distress. [] Dragon Disclaimer Dragon Disclaimer This electronic medical record was generated, in whole or in part, using a voice recognition dictation system. Departure Departure Impression: Primary Impression: Colitis Disposition: 01 HOME, SELF-CARE Condition: STABLE Referrals: HOLLIE EVANS MD (PCP) Patient Instructions: Abdominal Pain, Colitis, Nausea and Vomiting Additional Instructions: Follow up with primary care Scripts Ciprofloxacin Hcl (CIPRO) 500 Mg Tablet 1 TAB PO BID, #14 TAB Prov: SOPHIE LIN APRN 01/28/18 SOPHIE LIN APRN Jan 28, 2018 13:16
== END 2018-01-28 13:31 | disposition home or self-care (01) ==
LOC: ER 08:16
DX: K52.9 Noninfective gastroenteritis and colitis, unspecified (principal); M54.42 Lumbago with sciatica, left side; F10.20 Alcohol dependence, uncomplicated; Y90.6 Blood alcohol level of 120-199 mg/100 ml; Z95.0 Presence of cardiac pacemaker
CPT/HCPCS: 36415; 74177; 80053; 80307; 81001; 83690; 85007; 85025; 96361; 96374; 96375; 99285; G0480; J2405; J7030; Q9967; S0028; G0479

== ENCOUNTER 2018-05-02 23:54 | Emergency (ER) | payer SELFPAY ==
[~2018-05-02] VITALS: Ht 167.6 cm; Wt 81.6 kg
[~2018-05-02 23:54] MED LIST changes: +CIPR500T94 PO; -HYDR-2758 PO; +HYDR-2761 PO
[2018-05-03] VITALS: BP 179/105
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
[2018-05-03] MEDS ORDERED: METH-38 PO (02:52)
[2018-05-03] MEDS ORDERED: DICL50TA4 PO (02:52)
[2018-05-03] MEDS ORDERED: TRAM50TA PO (02:52)
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
== END 2018-05-03 02:59 | disposition home or self-care (01) ==
LOC: EEVIPCON 23:54 → ER 23:54
DX: S16.1XXA Strain of muscle, fascia and tendon at neck level, initial encounter (principal); T14.8XXA Other injury of unspecified body region, initial encounter; R51 Headache; M25.511 Pain in right shoulder; R07.81 Pleurodynia; F17.200 Nicotine dependence, unspecified, uncomplicated; F10.20 Alcohol dependence, uncomplicated; Y90.9 Presence of alcohol in blood, level not specified; Z95.0 Presence of cardiac pacemaker; Y08.89XA Assault by other specified means, initial encounter; Y93.89 Activity, other specified; Y92.89 Other specified places as the place of occurrence of the external cause; Y99.8 Other external cause status
CPT/HCPCS: 70450; 71101; 72125; 73030; 99284

== ENCOUNTER 2018-07-02 19:51 | Observation (INO) | payer SELFPAY ==
[~2018-07-02] VITALS: Ht 167.6 cm; Wt 83.9 kg
[~2018-07-02 19:51] MED LIST changes: +DICL50TA4 PO; +METH-38 PO; +TRAM50TA PO
--- NOTE | 2018-07-02 20:36 | PHYS DOC ---
Past Medical History Past Medical History: Pancreatitis Additional Past Medical Histor: DAILY ETOH (05/10), SCIATICA Past Surgical History: No Surgical History, Pacemaker Smoking: Cigarettes, 1 Pack Per Day Alcohol Use: Heavy Drug Use: None Adult General Chief Complaint Chief Complaint: CHEST PAIN [facility] HPI Patient is a 57 year old female who presents with chest pain. She reports that this started approximately 10:00 this morning. Worse with exertion, just walking in her house. No radiation. No nausea or vomiting. No diaphoresis. No previous history of this. Better with rest. No change with nitroglycerin from EMS. No fever or cough. She has a history of having a pacemaker since approximately age 11 when she had syncopal episodes. Patient denies any syncope today. Last time the pacemaker was replaced approximately 2-3 years ago Second complaint is right great toe pain. This started as well this morning. No known trauma. Increased pain with movement. No home medicines have been attempted. [] Review of Systems Review of Systems Constitutional: Denies fever or chills [] Eyes: Denies change in visual acuity, redness, or eye pain [] HENT: Denies nasal congestion or sore throat [] Respiratory: Denies cough or shortness of breath [] Cardiovascular: No additional information not addressed in HPI [] GI: Denies abdominal pain, nausea, vomiting, bloody stools or diarrhea [] : Denies dysuria or hematuria [] Musculoskeletal: Denies back pain, see history of present illness for foot[] Integument: Denies rash or skin lesions [] Neurologic: Denies headache, focal weakness or sensory changes [] Endocrine: Denies polyuria or polydipsia [] All other systems were reviewed and found to be within normal limits, except as documented in this note. Current Medications Current Medications Current Medications Medications (Trade) Dose Ordered Sig/Evelyne Start Time Stop Time Status Last Admin Dose Admin Ketorolac Tromethamine (Toradol 15mg Vial) 15 mg 1X ONCE 07/02/18 22:30 07/02/18 22:31 DC Allergies Allergies Allergies Coded Allergies Type Severity Reaction Last Updated Verified No Known Drug Allergies 08/17/13 No Physical Exam Physical Exam Constitutional: Well developed, well nourished, no acute distress, non-toxic appearance. [] HENT: Normocephalic, atraumatic, bilateral external ears normal, oropharynx moist, no oral exudates, nose normal. [] Eyes: PERRLA, EOMI, conjunctiva normal, no discharge. [] Neck: Normal range of motion, no tenderness, supple, no stridor. [] Cardiovascular:Heart rate regular rhythm, no murmur [] Lungs & Thorax: Bilateral breath sounds clear to auscultation [] Abdomen: Bowel sounds normal, soft, no tenderness, no masses, no pulsatile masses. [] Skin: Warm, dry, no erythema, no rash. [] Back: No tenderness, no CVA tenderness. [] Extremities: Mild tenderness and swelling around the right great toe. Full active range of motion. Patient is distal neurovascularly intact. no cyanosis, no clubbing, ROM intact, no edema. [] Neurologic: Alert and oriented X 3, normal motor function, normal sensory function, no focal deficits noted. [] Psychologic: Affect normal, judgement normal, mood normal. [] Current Patient Data Vital Signs Vital Signs Date Time Temp Pulse Resp B/P (MAP) Pulse Ox O2 Delivery O2 Flow Rate FiO2 07/02/18 20:04 98.3 73 20 152/81 (104) 99 Room Air 98.3 Lab Values Laboratory Tests Test 07/02/18 19:55 07/02/18 21:20 White Blood Count 8.6 x10^3/uL (4.0-11.0) Red Blood Count 4.54 x10^6/uL (3.50-5.40) Hemoglobin 15.0 g/dL (12.0-15.5) Hematocrit 44.5 % (36.0-47.0) Mean Corpuscular Volume 98 fL (79-100) Mean Corpuscular Hemoglobin 33 pg (25-35) Mean Corpuscular Hemoglobin Concent 34 g/dL (31-37) Red Cell Distribution Width 16.0 % (11.5-14.5) H Platelet Count 209 x10^3/uL (140-400) Neutrophils (%) (Auto) 53 % (31-73) Lymphocytes (%) (Auto) 42 % (24-48) Monocytes (%) (Auto) 5 % (0-9) Eosinophils (%) (Auto) 0 % (0-3) Basophils (%) (Auto) 1 % (0-3) Neutrophils # (Auto) 4.5 x10^3uL (1.8-7.7) Lymphocytes # (Auto) 3.6 x10^3/uL (1.0-4.8) Monocytes # (Auto) 0.4 x10^3/uL (0.0-1.1) Eosinophils # (Auto) 0.0 x10^3/uL (0.0-0.7) Basophils # (Auto) 0.1 x10^3/uL (0.0-0.2) Prothrombin Time 13.3 SEC (11.7-14.0) Prothrombin Time INR 1.0 (0.8-1.1) Sodium Level 145 mmol/L (136-145) Potassium Level 3.4 mmol/L (3.5-5.1) L Chloride Level 103 mmol/L (98-107) Carbon Dioxide Level 25 mmol/L (21-32) Anion Gap 17 (6-14) H Blood Urea Nitrogen 14 mg/dL (7-20) Creatinine 0.9 mg/dL (0.6-1.0) Estimated GFR (Cockcroft-Gault) 77.8 BUN/Creatinine Ratio 16 (6-20) Glucose Level 81 mg/dL (70-99) Uric Acid 8.4 mg/dL (2.6-6.0) H Calcium Level 9.6 mg/dL (8.5-10.1) Magnesium Level 1.8 mg/dL (1.8-2.4) Total Bilirubin 0.3 mg/dL (0.2-1.0) Aspartate Amino Transferase (AST) 53 U/L (15-37) H Alanine Aminotransferase (ALT) 48 U/L (14-59) Alkaline Phosphatase 97 U/L (46-116) Troponin I Quantitative < 0.017 ng/mL (0.000-0.055) TS-Wtr-X-Type Natriuretic Peptide 75 pg/mL (0-124) Total Protein 8.1 g/dL (6.4-8.2) Albumin 3.8 g/dL (3.4-5.0) Albumin/Globulin Ratio 0.9 (1.0-1.7) L Lipase 95 U/L (73-393) Laboratory Tests 07/02/18 19:55 Laboratory Tests 07/02/18 21:20 EKG EKG EKG shows a sinus rhythm at 71 bpm, normal axis, QTC of 485 ms, no ST elevations , no acute changes when compared with EKG of 11/28/2016. This was interpreted by me at 1955[] Radiology/Procedures Radiology/Procedures Chest x-ray shows no infiltrate, no effusion, no pneumothorax Foot x-ray shows no fracture, dislocation, nor evidence of osteomyelitis[] Course & Med Decision Making Course & Med Decision Making Pertinent Labs and Imaging studies reviewed. (See chart for details) Medical decision making: Patient with chest pain long standing history of a pacemaker. Initial set of cardiac enzymes are negative. We will admit her for further evaluation with serial troponins given her history. Patient has a heart score of 3 for her age, the abnormal EKG, and the risk factor of hypertension and smoking. Believe her foot pain to be gout given the elevated uric acid and the possibly of other findings on x-ray.[] Dragon Disclaimer Dragon Disclaimer This electronic medical record was generated, in whole or in part, using a voice recognition dictation system. Departure Departure Impression: Primary Impression: Chest pain Additional Impression: Gout Disposition: 09 ADMITTED INPATIENT Admitting Physician: Yamilet Galicia Condition: IMPROVED Referrals: HOLLIE EVANS MD (PCP) Problem Qualifiers Primary Impression: Chest pain Chest pain type: unspecified Qualified Codes: R07.9 - Chest pain, unspecified Additional Impression: Gout Gout site: toe Gout etiology: unspecified cause Chronicity: acute Laterality: right Qualified Codes: M10.9 - Gout, unspecified ANABELL LIEBERMAN DO Jul 02, 2018 20:36
[2018-07-02 20:49] LABS: BASO # 0.1 x10^3/uL (0.0-0.2); BASO % 1 % (0-3); EOS % 0 % (0-3); HEMATOCRIT 44.5 % (36.0-47.0); LYMPH # 3.6 x10^3/uL (1.0-4.8); LYMPH % 42 % (24-48); MEAN CORPUSCULAR HEMOGLOBIN 33 pg (25-35); MEAN CORPUSCULAR HGB CONC 34 g/dL (31-37); MEAN CORPUSCULAR VOLUME 98 fL (79-100); MONO # 0.4 x10^3/uL (0.0-1.1); MONO % 5 % (0-9); NEUT # 4.5 x10^3uL (1.8-7.7); NEUT % 53 % (31-73); PLATELET COUNT 209 x10^3/uL (140-400); RED BLOOD COUNT 4.54 x10^6/uL (3.50-5.40); WHITE BLOOD COUNT 8.6 x10^3/uL (4.0-11.0)
[2018-07-02 21:01] LABS: PROTHROMBIN TIME PATIENT 13.3 SEC (11.7-14.0)
[2018-07-02 21:37] LABS: CALCIUM 9.6 mg/dL (8.5-10.1); CREATININE 0.9 mg/dL (0.6-1.0); GFR 77.8; POTASSIUM 3.4 mmol/L (3.5-5.1)
[2018-07-02 21:42] LABS: ALBUMIN 3.8 g/dL (3.4-5.0); ALBUMIN/GLOBULIN RATIO 0.9 (1.0-1.7); MAGNESIUM 1.8 mg/dL (1.8-2.4); TOTAL BILIRUBIN 0.3 mg/dL (0.2-1.0); TOTAL PROTEIN 8.1 g/dL (6.4-8.2); URIC ACID 8.4 mg/dL (2.6-6.0)
[2018-07-02] MEDS ORDERED: KETOROLAC 15 MG/ML VIAL. IV ONE (22:30)
[2018-07-02] MEDS ORDERED: ONDANSETRON PF 4 MG/2 ML VIAL. IV PRN (23:00)
[2018-07-02] MEDS ORDERED: NITROGLYCERIN SUBLINGUAL 0.4 MG BOTTLE OF 25. SL PRN (23:00)
[2018-07-02] MEDS ORDERED: ACETAMINOPHEN 325 MG TABLET. PO PRN (23:00)
[2018-07-02 23:15] VITALS: BP 142/83
[2018-07-02 23:30] VITALS: BP 131/80
[2018-07-02] MEDS: IV NORMAL SALINE 1000ML BAG 1,000 ML IV SCH (23:35)
[2018-07-02 23:45] VITALS: BP 105/62
[2018-07-03] VITALS: BP 123/89
--- NOTE | 2018-07-03 00:14 | NUR ---
Patient arrived to unit at 2300 from ED via wheelchair accompanied by ED RN. Patient able to get out of wheelchair and walk to bed but has unsteady gait. Patient hooked up to monitors, SR with PACs on monitor, S1S2 heart tones heard, RA, bowel sounds active, A&Ox4, very talkative and frustrated. Patient states she does not take any home medications. NS started at 125 cc/hr per MD orders. Oriented to unit routines, call light, tv controls, bed controls, activity (up with assistance), and diet (NPO). Will continue to monitor.
[2018-07-03 01:08] LABS: CHOLESTEROL/HDL RATIO 4.7
[2018-07-03 03:00] VITALS: BP 128/85
[2018-07-03 07:00] VITALS: BP 128/85
--- NOTE | 2018-07-03 08:14 | PDOC1 ---
History and Physical Date of Admission Date of Admission 07/02/18 Identification/Chief Complaint Chief Complaint chest pain, right toe pain Source Source: Chart review, Patient History of Present Illness History of Present Illness She developed chest pain yesterday at 10 am which persisted during the day and finally she called EMS and they treated her with ASA and nitro without relief and she was brought to ER and admitted as EKG suggested some ischemic changes. She has not since had any pain, her cardiac enzymes are normal, her EKG is unchanged. She has a hx of a PPM since childhood due to syncopal episodes. She is not taking meds but is smoking. He PPM was last changed in 2013 Past Medical History Cardiovascular: Syncope Pulmonary: No pertinent hx GI: No pertinent hx Heme/Onc: No pertinent hx Hepatobiliary: No pertinent hx Psych: No pertinent hx Rheumatologic: Gout Infectious disease: No pertinent hx ENT: No pertinent hx Renal/: No pertinent hx Endocrine: No pertinent hx Dermatology: No pertinent hx Past Surgical History Past Surgical History: Pacemaker Family History Family History: Family History Unknown Social History Smoke: # pack years (40) Current Problem List Problem List Problems Medical Problems: (1) chest pain Status: Acute Current Medications Current Medications Current Medications Medications (Trade) Dose Ordered Sig/Evelyne Start Time Stop Time Status Last Admin Dose Admin Acetaminophen (Tylenol) 650 mg PRN Q4HRS PRN 07/02/18 23:00 07/03/18 22:59 Ketorolac Tromethamine (Toradol 15mg Vial) 15 mg 1X ONCE 07/02/18 22:30 07/02/18 22:31 DC 07/02/18 22:53 15 MG Nitroglycerin (Nitrostat) 0.4 mg PRN Q5MIN PRN 07/02/18 23:00 07/03/18 22:59 Ondansetron HCl (Zofran) 4 mg PRN Q8HRS PRN 07/02/18 23:00 07/03/18 22:59 Sodium Chloride 1,000 ml @ 125 mls/hr Q8H 07/02/18 23:00 07/03/18 22:59 07/02/18 23:35 125 MLS/HR Allergies Allergies Allergies Coded Allergies Type Severity Reaction Last Updated Verified No Known Drug Allergies 08/17/13 No ROS Review of System CONSTITUTIONAL: No fever or chills EYES: No recent changes SKIN: No rash or itching CARDIOVASCULAR: see HPI RESPIRATORY: No SOB or cough GASTROINTESTINAL: No nausea, vomiting or abdominal pain NEUROLOGICAL: No headaches or weakness ENDOCRINE: No cold or heat intolerance GENITOURINARY: No urgency or frequency of urination MUSCULOSKELETAL: + back pain, right 1st ray joint pain LYMPHATICS: No enlarged lymph nodes PSYCHIATRIC: No anxiety or depression Physical Exam Physical Exam GEN.: No apparent distress. Alert and oriented. HEENT: Head is normocephalic, atraumatic NECK: Supple. LUNGS: Clear to auscultation. HEART: RRR, S1, S2 present. Peripheral pulses intact, occasional PAC on monitor, no paced beats noted, no pauses ABDOMEN: Soft, nontender. Positive bowel sounds. EXTREMITIES: Without any cyanosis, mild tenderness right 1st toe. NEUROLOGIC: Normal speech, normal tone PSYCHIATRIC: Normal affect, normal mood. SKIN: No ulcerations Vitals Vitals Vital Signs Date Time Temp Pulse Resp B/P (MAP) Pulse Ox O2 Delivery O2 Flow Rate FiO2 07/03/18 03:00 98.0 67 16 128/85 (99) 100 Room Air 98.0 Labs Labs Laboratory Tests Test 07/02/18 19:55 07/02/18 21:20 07/03/18 00:25 07/03/18 05:50 White Blood Count 8.6 x10^3/uL (4.0-11.0) Red Blood Count 4.54 x10^6/uL (3.50-5.40) Hemoglobin 15.0 g/dL (12.0-15.5) Hematocrit 44.5 % (36.0-47.0) Mean Corpuscular Volume 98 fL (79-100) Mean Corpuscular Hemoglobin 33 pg (25-35) Mean Corpuscular Hemoglobin Concent 34 g/dL (31-37) Red Cell Distribution Width 16.0 % (11.5-14.5) Platelet Count 209 x10^3/uL (140-400) Neutrophils (%) (Auto) 53 % (31-73) Lymphocytes (%) (Auto) 42 % (24-48) Monocytes (%) (Auto) 5 % (0-9) Eosinophils (%) (Auto) 0 % (0-3) Basophils (%) (Auto) 1 % (0-3) Neutrophils # (Auto) 4.5 x10^3uL (1.8-7.7) Lymphocytes # (Auto) 3.6 x10^3/uL (1.0-4.8) Monocytes # (Auto) 0.4 x10^3/uL (0.0-1.1) Eosinophils # (Auto) 0.0 x10^3/uL (0.0-0.7) Basophils # (Auto) 0.1 x10^3/uL (0.0-0.2) Prothrombin Time 13.3 SEC (11.7-14.0) Prothromb Time International Ratio 1.0 (0.8-1.1) Sodium Level 145 mmol/L (136-145) Potassium Level 3.4 mmol/L (3.5-5.1) Chloride Level 103 mmol/L (98-107) Carbon Dioxide Level 25 mmol/L (21-32) Anion Gap 17 (6-14) Blood Urea Nitrogen 14 mg/dL (7-20) Creatinine 0.9 mg/dL (0.6-1.0) Estimated GFR (Cockcroft-Gault) 77.8 BUN/Creatinine Ratio 16 (6-20) Glucose Level 81 mg/dL (70-99) Uric Acid 8.4 mg/dL (2.6-6.0) Calcium Level 9.6 mg/dL (8.5-10.1) Magnesium Level 1.8 mg/dL (1.8-2.4) Total Bilirubin 0.3 mg/dL (0.2-1.0) Aspartate Amino Transf (AST/SGOT) 53 U/L (15-37) Alanine Aminotransferase (ALT/SGPT) 48 U/L (14-59) Alkaline Phosphatase 97 U/L (46-116) Troponin I Quantitative < 0.017 ng/mL (0.000-0.055) < 0.017 ng/mL (0.000-0.055) < 0.017 ng/mL (0.000-0.055) SY-Glz-Y-Type Natriuretic Peptide 75 pg/mL (0-124) Total Protein 8.1 g/dL (6.4-8.2) Albumin 3.8 g/dL (3.4-5.0) Albumin/Globulin Ratio 0.9 (1.0-1.7) Lipase 95 U/L (73-393) Triglycerides Level 206 mg/dL (0-150) Cholesterol Level 318 mg/dL (0-200) LDL Cholesterol, Calculated 210 mg/dL (0-100) VLDL Cholesterol, Calculated 41 mg/dL (0-40) Non-HDL Cholesterol Calculated 251 mg/dL (0-129) HDL Cholesterol 67 mg/dL (40-60) Cholesterol/HDL Ratio 4.7 Laboratory Tests Test 07/02/18 19:55 07/02/18 21:20 07/03/18 00:25 07/03/18 05:50 White Blood Count 8.6 x10^3/uL (4.0-11.0) Red Blood Count 4.54 x10^6/uL (3.50-5.40) Hemoglobin 15.0 g/dL (12.0-15.5) Hematocrit 44.5 % (36.0-47.0) Mean Corpuscular Volume 98 fL (79-100) Mean Corpuscular Hemoglobin 33 pg (25-35) Mean Corpuscular Hemoglobin Concent 34 g/dL (31-37) Red Cell Distribution Width 16.0 % (11.5-14.5) Platelet Count 209 x10^3/uL (140-400) Neutrophils (%) (Auto) 53 % (31-73) Lymphocytes (%) (Auto) 42 % (24-48) Monocytes (%) (Auto) 5 % (0-9) Eosinophils (%) (Auto) 0 % (0-3) Basophils (%) (Auto) 1 % (0-3) Neutrophils # (Auto) 4.5 x10^3uL (1.8-7.7) Lymphocytes # (Auto) 3.6 x10^3/uL (1.0-4.8) Monocytes # (Auto) 0.4 x10^3/uL (0.0-1.1) Eosinophils # (Auto) 0.0 x10^3/uL (0.0-0.7) Basophils # (Auto) 0.1 x10^3/uL (0.0-0.2) Prothrombin Time 13.3 SEC (11.7-14.0) Prothromb Time International Ratio 1.0 (0.8-1.1) Sodium Level 145 mmol/L (136-145) Potassium Level 3.4 mmol/L (3.5-5.1) Chloride Level 103 mmol/L (98-107) Carbon Dioxide Level 25 mmol/L (21-32) Anion Gap 17 (6-14) Blood Urea Nitrogen 14 mg/dL (7-20) Creatinine 0.9 mg/dL (0.6-1.0) Estimated GFR (Cockcroft-Gault) 77.8 BUN/Creatinine Ratio 16 (6-20) Glucose Level 81 mg/dL (70-99) Uric Acid 8.4 mg/dL (2.6-6.0) Calcium Level 9.6 mg/dL (8.5-10.1) Magnesium Level 1.8 mg/dL (1.8-2.4) Total Bilirubin 0.3 mg/dL (0.2-1.0) Aspartate Amino Transf (AST/SGOT) 53 U/L (15-37) Alanine Aminotransferase (ALT/SGPT) 48 U/L (14-59) Alkaline Phosphatase 97 U/L (46-116) Troponin I Quantitative < 0.017 ng/mL (0.000-0.055) < 0.017 ng/mL (0.000-0.055) < 0.017 ng/mL (0.000-0.055) PJ-Nii-V-Type Natriuretic Peptide 75 pg/mL (0-124) Total Protein 8.1 g/dL (6.4-8.2) Albumin 3.8 g/dL (3.4-5.0) Albumin/Globulin Ratio 0.9 (1.0-1.7) Lipase 95 U/L (73-393) Triglycerides Level 206 mg/dL (0-150) Cholesterol Level 318 mg/dL (0-200) LDL Cholesterol, Calculated 210 mg/dL (0-100) VLDL Cholesterol, Calculated 41 mg/dL (0-40) Non-HDL Cholesterol Calculated 251 mg/dL (0-129) HDL Cholesterol 67 mg/dL (40-60) Cholesterol/HDL Ratio 4.7 Images Images CXR clear VTE Prophylaxis Ordered VTE Prophylaxis Devices: No VTE Pharmacological Prophylaxi: No Assessment/Plan Assessment/Plan chest pain - cardiology to see, no evidence of ACS hyperlipidemia - start atorvastatin and zetia gout, start allopurinol and one dose of colchicine hx of arrhythmia/syncope - has PPM tobacco use disorder - no desire to quit Antoinette SAAVEDRA MD Jul 03, 2018 08:14
[2018-07-03] MEDS ORDERED: COLCHICINE 0.6 MG TABLET PO ONE (08:30)
[2018-07-03] MEDS: IV NORMAL SALINE 1000ML BAG 1,000 ML IV SCH (08:43)
[2018-07-03] MEDS ORDERED: ALLOPURINOL 300 MG TABLET. PO SCH (09:00)
[2018-07-03] MEDS ORDERED: EZETIMIBE 10 MG TABLET. PO SCH (09:00)
--- NOTE | 2018-07-03 10:23 | EKG ---
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
[2018-07-03 11:00] VITALS: BP 128/85
--- NOTE | 2018-07-03 12:59 | PDOC2 ---
CONSULT Date of Consult Date of Consult DATE: 07/03/18 TIME: 12:51 Reason for Consult Reason for Consult: Chest pain, pacemaker Referring Physician Referring Physician: Dr. Galicia Identification/Chief Complaint Chief Complaint Chest pain Source Source: Patient History of Present Illness Reason for Visit: The patient is a 57-year-old female who was admitted through the emergency room for episodes of chest discomfort and right toe pain. The discomfort had been occasional over the last several days but then increased last evening. It is not clearly increased with exertion. The patient also has a pacemaker placed when she was a teenager with the last change out in 2013. Patient's EKG has shown no acute ischemic changes. Troponin has been normal �3. This morning she denies any further chest pain. She reports feeling well. Past Medical History Cardiovascular: Syncope, Hyperlipidemia Pulmonary: No pertinent hx, COPD GI: No pertinent hx Heme/Onc: No pertinent hx Hepatobiliary: No pertinent hx Psych: No pertinent hx Rheumatologic: Gout Infectious disease: No pertinent hx ENT: No pertinent hx Renal/: No pertinent hx Endocrine: No pertinent hx Dermatology: No pertinent hx Past Surgical History Past Surgical History: Pacemaker Family History Family History: Family History Unknown Social History 1 pack per day ALCOHOL: other (possibly heavy) Current Problem List Problem List Problems Medical Problems: (1) Gout Status: Acute Current Medications Current Medications Current Medications Ketorolac Tromethamine (Toradol 15mg Vial) 15 mg 1X ONCE IV Last administered on 07/02/18at 22:53; Start 07/02/18 at 22:30; Stop 07/02/18 at 22:31; Status DC Ondansetron HCl (Zofran) 4 mg PRN Q8HRS PRN IV NAUSEA/VOMITING; Start 07/02/18 at 23:00; Stop 07/03/18 at 22:59 Sodium Chloride 1,000 ml @ 125 mls/hr Q8H IV Last administered on 07/03/18at 08: 43; Start 07/02/18 at 23:00; Stop 07/03/18 at 22:59 Acetaminophen (Tylenol) 650 mg PRN Q4HRS PRN PO FEVER; Start 07/02/18 at 23:00; Stop 07/03/18 at 22:59 Nitroglycerin (Nitrostat) 0.4 mg PRN Q5MIN PRN SL CHEST PAIN; Start 07/02/18 at 23:00; Stop 07/03/18 at 22:59 Colchicine (Colcrys) 0.6 mg 1X ONCE PO Last administered on 07/03/18at 08:43; Start 07/03/18 at 08:30; Stop 07/03/18 at 08:31; Status DC Allopurinol (Zyloprim) 300 mg DAILY PO Last administered on 07/03/18at 08:43; Start 07/03/18 at 09:00 Atorvastatin Calcium (Lipitor) 40 mg QHS PO ; Start 07/03/18 at 21:00 EZETIMIBE (Zetia) 10 mg DAILY PO Last administered on 07/03/18at 08:43; Start 07/03/18 at 09:00 Active Scripts Active Reported No Known Medications Prior To Admisstion (Info) Each 1 Each 1X Allergies Allergies: Coded Allergies: No Known Drug Allergies (Unverified , 08/17/13) ROS Cardiovascular: yes Chest Pain Physical Exam General: No acute distress HEENT: Atraumatic Lungs: Clear to auscultation Heart: Regular rate Abdomen: Normal bowel sounds Vitals VITALS Vital Signs Date Time Temp Pulse Resp B/P (MAP) Pulse Ox O2 Delivery O2 Flow Rate FiO2 07/03/18 11:00 98.0 67 128/85 (99) 100 Room Air 98.0 07/03/18 03:00 16 Labs Labs Laboratory Tests Test 07/02/18 19:55 07/02/18 21:20 07/03/18 00:25 07/03/18 05:50 White Blood Count 8.6 x10^3/uL (4.0-11.0) Red Blood Count 4.54 x10^6/uL (3.50-5.40) Hemoglobin 15.0 g/dL (12.0-15.5) Hematocrit 44.5 % (36.0-47.0) Mean Corpuscular Volume 98 fL (79-100) Mean Corpuscular Hemoglobin 33 pg (25-35) Mean Corpuscular Hemoglobin Concent 34 g/dL (31-37) Red Cell Distribution Width 16.0 % (11.5-14.5) Platelet Count 209 x10^3/uL (140-400) Neutrophils (%) (Auto) 53 % (31-73) Lymphocytes (%) (Auto) 42 % (24-48) Monocytes (%) (Auto) 5 % (0-9) Eosinophils (%) (Auto) 0 % (0-3) Basophils (%) (Auto) 1 % (0-3) Neutrophils # (Auto) 4.5 x10^3uL (1.8-7.7) Lymphocytes # (Auto) 3.6 x10^3/uL (1.0-4.8) Monocytes # (Auto) 0.4 x10^3/uL (0.0-1.1) Eosinophils # (Auto) 0.0 x10^3/uL (0.0-0.7) Basophils # (Auto) 0.1 x10^3/uL (0.0-0.2) Prothrombin Time 13.3 SEC (11.7-14.0) Prothromb Time International Ratio 1.0 (0.8-1.1) Sodium Level 145 mmol/L (136-145) Potassium Level 3.4 mmol/L (3.5-5.1) Chloride Level 103 mmol/L (98-107) Carbon Dioxide Level 25 mmol/L (21-32) Anion Gap 17 (6-14) Blood Urea Nitrogen 14 mg/dL (7-20) Creatinine 0.9 mg/dL (0.6-1.0) Estimated GFR (Cockcroft-Gault) 77.8 BUN/Creatinine Ratio 16 (6-20) Glucose Level 81 mg/dL (70-99) Uric Acid 8.4 mg/dL (2.6-6.0) Calcium Level 9.6 mg/dL (8.5-10.1) Magnesium Level 1.8 mg/dL (1.8-2.4) Total Bilirubin 0.3 mg/dL (0.2-1.0) Aspartate Amino Transf (AST/SGOT) 53 U/L (15-37) Alanine Aminotransferase (ALT/SGPT) 48 U/L (14-59) Alkaline Phosphatase 97 U/L (46-116) Troponin I Quantitative < 0.017 ng/mL (0.000-0.055) < 0.017 ng/mL (0.000-0.055) < 0.017 ng/mL (0.000-0.055) GW-Hyt-Z-Type Natriuretic Peptide 75 pg/mL (0-124) Total Protein 8.1 g/dL (6.4-8.2) Albumin 3.8 g/dL (3.4-5.0) Albumin/Globulin Ratio 0.9 (1.0-1.7) Lipase 95 U/L (73-393) Triglycerides Level 206 mg/dL (0-150) Cholesterol Level 318 mg/dL (0-200) LDL Cholesterol, Calculated 210 mg/dL (0-100) VLDL Cholesterol, Calculated 41 mg/dL (0-40) Non-HDL Cholesterol Calculated 251 mg/dL (0-129) HDL Cholesterol 67 mg/dL (40-60) Cholesterol/HDL Ratio 4.7 Laboratory Tests Test 07/02/18 19:55 07/02/18 21:20 07/03/18 00:25 07/03/18 05:50 White Blood Count 8.6 x10^3/uL (4.0-11.0) Red Blood Count 4.54 x10^6/uL (3.50-5.40) Hemoglobin 15.0 g/dL (12.0-15.5) Hematocrit 44.5 % (36.0-47.0) Mean Corpuscular Volume 98 fL (79-100) Mean Corpuscular Hemoglobin 33 pg (25-35) Mean Corpuscular Hemoglobin Concent 34 g/dL (31-37) Red Cell Distribution Width 16.0 % (11.5-14.5) Platelet Count 209 x10^3/uL (140-400) Neutrophils (%) (Auto) 53 % (31-73) Lymphocytes (%) (Auto) 42 % (24-48) Monocytes (%) (Auto) 5 % (0-9) Eosinophils (%) (Auto) 0 % (0-3) Basophils (%) (Auto) 1 % (0-3) Neutrophils # (Auto) 4.5 x10^3uL (1.8-7.7) Lymphocytes # (Auto) 3.6 x10^3/uL (1.0-4.8) Monocytes # (Auto) 0.4 x10^3/uL (0.0-1.1) Eosinophils # (Auto) 0.0 x10^3/uL (0.0-0.7) Basophils # (Auto) 0.1 x10^3/uL (0.0-0.2) Prothrombin Time 13.3 SEC (11.7-14.0) Prothromb Time International Ratio 1.0 (0.8-1.1) Sodium Level 145 mmol/L (136-145) Potassium Level 3.4 mmol/L (3.5-5.1) Chloride Level 103 mmol/L (98-107) Carbon Dioxide Level 25 mmol/L (21-32) Anion Gap 17 (6-14) Blood Urea Nitrogen 14 mg/dL (7-20) Creatinine 0.9 mg/dL (0.6-1.0) Estimated GFR (Cockcroft-Gault) 77.8 BUN/Creatinine Ratio 16 (6-20) Glucose Level 81 mg/dL (70-99) Uric Acid 8.4 mg/dL (2.6-6.0) Calcium Level 9.6 mg/dL (8.5-10.1) Magnesium Level 1.8 mg/dL (1.8-2.4) Total Bilirubin 0.3 mg/dL (0.2-1.0) Aspartate Amino Transf (AST/SGOT) 53 U/L (15-37) Alanine Aminotransferase (ALT/SGPT) 48 U/L (14-59) Alkaline Phosphatase 97 U/L (46-116) Troponin I Quantitative < 0.017 ng/mL (0.000-0.055) < 0.017 ng/mL (0.000-0.055) < 0.017 ng/mL (0.000-0.055) UO-Ggv-L-Type Natriuretic Peptide 75 pg/mL (0-124) Total Protein 8.1 g/dL (6.4-8.2) Albumin 3.8 g/dL (3.4-5.0) Albumin/Globulin Ratio 0.9 (1.0-1.7) Lipase 95 U/L (73-393) Triglycerides Level 206 mg/dL (0-150) Cholesterol Level 318 mg/dL (0-200) LDL Cholesterol, Calculated 210 mg/dL (0-100) VLDL Cholesterol, Calculated 41 mg/dL (0-40) Non-HDL Cholesterol Calculated 251 mg/dL (0-129) HDL Cholesterol 67 mg/dL (40-60) Cholesterol/HDL Ratio 4.7 Images Images Chest x-ray with no acute changes. Pacemaker in place. Assessment/Plan Assessment/Plan 1. Chest pain. Patient's pain has resolved. Her EKG shows no acute ischemic changes. Troponins have been normal �3. Would continue present treatments as outlined below. Will consider for outpatient stress testing. This was discussed with the patient. 2. Hyperlipidemia. LDL of 210. HDL of 67. The patient has been started on statins. 3. Permanent pacemaker. Biotronik's. Patient is not sure of the last time it was checked. We'll contact the adult literacy instructor. We'll arrange for outpatient follow -up in the office for possible stress testing and a pacemaker interrogation on the same visit. This was discussed with the patient. 4. Gout. Treatments as above. Thank you for allowing us to participate in the care of your patient. GERRY LEI MD Jul 03, 2018 12:59
[2018-07-03] MEDS ORDERED: ATORVASTATIN CALCIUM 40 MG TABLET. PO SCH (21:00)
--- NOTE | 2018-07-04 14:47 | PDOC3 ---
Discharge Summary IPC Date of Admission: Jul 02, 2018 Discharge Date: Jul 03, 2018 Admitting Diagnosis chest pain Final Diagnosis chest pain, non cardiac, likely musculoskeletal Status: Acute CONSULTS cardiology Procedures none Brief Hospital Course Ms. Cat is a 57 old who presented with chest pain that was unresolved with nitro and aspirin in route to ER by EMS. Admitted but enzymes and EKG without acute findings. Found to have elevated cholesterol (started on statin and zetia ) and 1st toe pain consistent with podagra and elevated uric acid also 9 given colchicine and allopurinol and improved). Cardiology consulted and found no need for further inpatient eval, she will f/u as OP. She does have a PPM placed initially as a child and is to have it checked also as an OP, she had no significant arrhythmias while here. Patient History: Family history: Cardiovascular disease (situation) 33 FATHER Family history: Diabetes mellitus (situation) 33 FATHER Disposition home CONDITION AT DISCHARGE: Improved Diet cardiac Scheduled Info (No Known Medications Prior To Admisstion), 1 EACH MC 1X, (Reported) Follow Up 1-2 weeks Antoinette SAAVEDRA MD Jul 04, 2018 14:47
--- NOTE | 2018-07-06 10:23 | RAD ---
EXAM: Chest, single view. HISTORY: Pain. COMPARISON: 05/03/2018 FINDINGS: A frontal view of the chest is obtained. There is slight increased right lower lobe opacity likely due to asymmetric overlying soft tissues. There is no consolidation, pleural effusion or pneumothorax. There is a prominent cardiac silhouette. There is a cardiac pacemaker with leads overlying expected position. IMPRESSION: No acute pulmonary finding. Electronically signed by: aOnh Cazares MD (07/06/2018 10:20 AM) [email or web address]
--- NOTE | 2018-07-06 10:37 | RAD ---
EXAM: Right foot, 3 views. HISTORY: Great toe pain and swelling. COMPARISON: None. FINDINGS: 3 views of the right foot are obtained. There is no fracture, dislocation or subluxation. There is mild hallux valgus. There is no radiographic evidence of osteomyelitis. There is minimal enthesopathy at the Achilles tendon insertion. IMPRESSION: No acute osseous finding. Electronically signed by: Oanh Cazares MD (07/06/2018 10:34 AM) [id number]
== END 2018-07-03 14:02 | disposition home or self-care (01) ==
LOC: ER 19:51 → 1 WEST ICU 22:16
PROVIDERS: ADMIT Family Medicine; ATTEND Family Medicine
DX: R07.89 Other chest pain (principal); E78.5 Hyperlipidemia, unspecified; M10.9 Gout, unspecified; Z72.0 Tobacco use; Z95.0 Presence of cardiac pacemaker; Z83.3 Family history of diabetes mellitus; Z82.49 Family history of ischemic heart disease and other diseases of the circulatory system
CPT/HCPCS: 36415; 71045; 73630; 80053; 80061; 83690; 83735; 83880; 84484; 84550; 85025; 85610; 87641; 93005; 96374; 99284; G0378; J1885; J7030; G0379

== ENCOUNTER 2018-08-23 21:00 | Emergency (ER) | payer SELFPAY ==
[~2018-08-23] VITALS: Ht 157.5 cm; Wt 83.9 kg
[2018-08-23 21:28] LABS: BASO # 0.1 x10^3/uL (0.0-0.2); BASO % 1 % (0-3); EOS % 0 % (0-3); HEMATOCRIT 39.2 % (36.0-47.0); HEMOGLOBIN 13.2 g/dL (12.0-15.5); LYMPH # 2.7 x10^3/uL (1.0-4.8); LYMPH % 27 % (24-48); MEAN CORPUSCULAR HEMOGLOBIN 33 pg (25-35); MEAN CORPUSCULAR HGB CONC 34 g/dL (31-37); MEAN CORPUSCULAR VOLUME 97 fL (79-100); MONO # 0.5 x10^3/uL (0.0-1.1); MONO % 5 % (0-9); NEUT # 6.5 x10^3uL (1.8-7.7); NEUT % 67 % (31-73); PLATELET COUNT 309 x10^3/uL (140-400); RED BLOOD COUNT 4.04 x10^6/uL (3.50-5.40); RED CELL DISTRIBUTION WIDTH 15.3 % (11.5-14.5); WHITE BLOOD COUNT 9.7 x10^3/uL (4.0-11.0)
[2018-08-23] MEDS ORDERED: FAMOTIDINE 20 MG/2 ML VIAL IVP ONE (21:30)
[2018-08-23] MEDS ORDERED: ONDANSETRON PF 4 MG/2 ML VIAL. IV ONE (21:30)
[2018-08-23 21:33] LABS: BILIRUBIN,URINE NEGATIVE (NEG); CLARITY,URINE CLEAR; COLOR,URINE YELLOW; NITRITE,URINE NEGATIVE (NEG); PH,URINE 6.5; PROTEIN,URINE NEGATIVE (NEG-TRACE); UROBILINOGEN,URINE 0.2 mg/dL (0.2 mg/dL)
[2018-08-23 21:38] LABS: BACTERIA,URINE 0 /HPF (0-FEW); CALCIUM 9.3 mg/dL (8.5-10.1); CREATININE 0.9 mg/dL (0.6-1.0); GFR 77.8; POTASSIUM 3.4 mmol/L (3.5-5.1); RBC,URINE 0 /HPF (0-2); SQUAMOUS EPITHELIAL CELL,UR FEW /LPF; WBC,URINE RARE /HPF (0-4)
[2018-08-23 21:44] LABS: ALBUMIN 3.9 g/dL (3.4-5.0); ALBUMIN/GLOBULIN RATIO 0.9 (1.0-1.7); MAGNESIUM 1.7 mg/dL (1.8-2.4); TOTAL BILIRUBIN 0.3 mg/dL (0.2-1.0); TOTAL PROTEIN 8.2 g/dL (6.4-8.2)
[2018-08-23 21:52] LABS: BARBITURATES NEG (NEG); BENZODIAZEPINES NEG (NEG); CANNABINOIDS NEG (NEG); COCAINE NEG (NEG); METHADONE NEG (NEG); OPIATES NEG (NEG); PHENCYCLIDINE NEG (NEG)
[2018-08-23 21:54] LABS: AMPHETAMINE/METHAMPHETAMINE NEG (NEG)
--- NOTE | 2018-08-23 21:56 | RAD ---
Indication:HBP, SOA TECHNIQUE:Portable AP chest X-ray COMPARISON:07/02/2018 FINDINGS: Stable position of right chest wall cardiac pacer with leads ejecting over the heart. Heart is normal in size. Prominent bilateral bronchial markings are seen. No focal consolidation. No pneumothorax or pleural effusion. Visualized bony thorax is within normal limits. IMPRESSION: Findings of bronchitis in appropriate clinical setting. Electronically signed by: Tyler Charles DO (08/23/2018 9:54 PM) [facility]
[2018-08-23] MEDS ORDERED: MULTIVIT INFUSN,ADULT 4,VIT K 10 ML, THIAMINE INJ 100 MG, FOLIC ACID INJ 1 MG in IV NOR... IV ONE (22:00)
[2018-08-24 00:06] VITALS: BP 121/73
[2018-08-24] MEDS ORDERED: FAMO-63 PO (00:30)
--- NOTE | 2018-08-24 00:30 | PHYS DOC ---
Past Medical History Past Medical History: Pancreatitis Additional Past Medical Histor: DAILY ETOH (05/10), SCIATICA Past Surgical History: No Surgical History, Pacemaker Additional Past Surgical Histo: PACEMAKER Alcohol Use: Heavy Drug Use: None Adult General Chief Complaint Chief Complaint: ALCOHOL INTOXICATION HPI HPI Patient is a 57 year old [f__sex] who presents with [] Review of Systems Review of Systems Constitutional: Denies fever or chills [] Eyes: Denies change in visual acuity, redness, or eye pain [] HENT: Denies nasal congestion or sore throat [] Respiratory: Denies cough or shortness of breath [] Cardiovascular: No additional information not addressed in HPI [] GI: Denies abdominal pain, nausea, vomiting, bloody stools or diarrhea [] : Denies dysuria or hematuria [] Musculoskeletal: Denies back pain or joint pain [] Integument: Denies rash or skin lesions [] Neurologic: Denies headache, focal weakness or sensory changes [] Endocrine: Denies polyuria or polydipsia [] All other systems were reviewed and found to be within normal limits, except as documented in this note. Current Medications Current Medications Current Medications Medications (Trade) Dose Ordered Sig/Evelyne Start Time Stop Time Status Last Admin Dose Admin Famotidine (Pepcid Vial) 20 mg 1X ONCE 08/23/18 21:30 08/23/18 21:31 DC 08/23/18 21:48 20 MG Multivitamins 10 ml/Thiamine HCl 100 mg/Folic Acid 1 mg/Sodium Chloride 1,011.2 ml @ 1,000.088 mls/hr 1X ONCE 08/23/18 22:00 08/23/18 23:00 DC 08/23/18 21:47 1,000.088 MLS/HR Ondansetron HCl (Zofran) 4 mg 1X ONCE 08/23/18 21:30 08/23/18 21:31 DC 08/23/18 21:48 4 MG Allergies Allergies Allergies Coded Allergies Type Severity Reaction Last Updated Verified No Known Drug Allergies 08/17/13 No Physical Exam Physical Exam Constitutional: Well developed, well nourished, no acute distress, non-toxic appearance. [] HENT: Normocephalic, atraumatic, bilateral external ears normal, oropharynx moist, no oral exudates, nose normal. [] Eyes: PERRLA, EOMI, conjunctiva normal, no discharge. [] Neck: Normal range of motion, no tenderness, supple, no stridor. [] Cardiovascular:Heart rate regular rhythm, no murmur [] Lungs & Thorax: Bilateral breath sounds clear to auscultation [] Abdomen: Bowel sounds normal, soft, no tenderness, no masses, no pulsatile masses. [] Skin: Warm, dry, no erythema, no rash. [] Back: No tenderness, no CVA tenderness. [] Extremities: No tenderness, no cyanosis, no clubbing, ROM intact, no edema. [] Neurologic: Alert and oriented X 3, normal motor function, normal sensory function, no focal deficits noted. [] Psychologic: Affect normal, judgement normal, mood normal. [] Current Patient Data Vital Signs Vital Signs Date Time Temp Pulse Resp B/P (MAP) Pulse Ox O2 Delivery O2 Flow Rate FiO2 08/24/18 00:06 76 20 121/73 (89) 98 Room Air 08/23/18 21:03 98.1 98.1 Lab Values Laboratory Tests Test 08/23/18 21:15 08/23/18 23:55 White Blood Count 9.7 x10^3/uL (4.0-11.0) Red Blood Count 4.04 x10^6/uL (3.50-5.40) Hemoglobin 13.2 g/dL (12.0-15.5) Hematocrit 39.2 % (36.0-47.0) Mean Corpuscular Volume 97 fL (79-100) Mean Corpuscular Hemoglobin 33 pg (25-35) Mean Corpuscular Hemoglobin Concent 34 g/dL (31-37) Red Cell Distribution Width 15.3 % (11.5-14.5) H Platelet Count 309 x10^3/uL (140-400) Neutrophils (%) (Auto) 67 % (31-73) Lymphocytes (%) (Auto) 27 % (24-48) Monocytes (%) (Auto) 5 % (0-9) Eosinophils (%) (Auto) 0 % (0-3) Basophils (%) (Auto) 1 % (0-3) Neutrophils # (Auto) 6.5 x10^3uL (1.8-7.7) Lymphocytes # (Auto) 2.7 x10^3/uL (1.0-4.8) Monocytes # (Auto) 0.5 x10^3/uL (0.0-1.1) Eosinophils # (Auto) 0.0 x10^3/uL (0.0-0.7) Basophils # (Auto) 0.1 x10^3/uL (0.0-0.2) Urine Collection Type Unknown Urine Color Yellow Urine Clarity Clear Urine pH 6.5 Urine Specific [place] <=1.005 Urine Protein Negative mg/dL (NEG-TRACE) Urine Glucose (UA) Negative mg/dL (NEG) Urine Ketones (Stick) Negative mg/dL (NEG) Urine Blood Negative (NEG) Urine Nitrite Negative (NEG) Urine Bilirubin Negative (NEG) Urine Urobilinogen Dipstick 0.2 mg/dL (0.2 mg/dL) Urine Leukocyte Esterase Negative (NEG) Urine RBC 0 /HPF (0-2) Urine WBC Rare /HPF (0-4) Urine Squamous Epithelial Cells Few /LPF Urine Bacteria 0 /HPF (0-FEW) Sodium Level 146 mmol/L (136-145) H Potassium Level 3.4 mmol/L (3.5-5.1) L Chloride Level 104 mmol/L (98-107) Carbon Dioxide Level 23 mmol/L (21-32) Anion Gap 19 (6-14) H Blood Urea Nitrogen 6 mg/dL (7-20) L Creatinine 0.9 mg/dL (0.6-1.0) Estimated GFR (Cockcroft-Gault) 77.8 BUN/Creatinine Ratio 7 (6-20) Glucose Level 98 mg/dL (70-99) Calcium Level 9.3 mg/dL (8.5-10.1) Magnesium Level 1.7 mg/dL (1.8-2.4) L Total Bilirubin 0.3 mg/dL (0.2-1.0) Aspartate Amino Transferase (AST) 27 U/L (15-37) Alanine Aminotransferase (ALT) 29 U/L (14-59) Alkaline Phosphatase 99 U/L (46-116) Creatine Kinase 159 U/L (26-192) Creatine Kinase MB (Mass) 1.3 ng/mL (0.0-3.6) Creatine Kinase MB Relative Index 0.8 % (0-4) Troponin I Quantitative < 0.017 ng/mL (0.000-0.055) < 0.017 ng/mL (0.000-0.055) Total Protein 8.2 g/dL (6.4-8.2) Albumin 3.9 g/dL (3.4-5.0) Albumin/Globulin Ratio 0.9 (1.0-1.7) L Lipase 76 U/L (73-393) Urine Opiates Screen Neg (NEG) Urine Methadone Screen Neg (NEG) Urine Barbiturates Neg (NEG) Urine Phencyclidine Screen Neg (NEG) Urine Amphetamine/Methamphetamine Neg (NEG) Urine Benzodiazepines Screen Neg (NEG) Urine Cocaine Screen Neg (NEG) Urine Cannabinoids Screen Neg (NEG) Ethyl Alcohol Level 315 mg/dL (0-10) H Urine Ethyl Alcohol Pos (NEG) Laboratory Tests 08/23/18 21:15 Laboratory Tests 08/23/18 21:15 EKG EKG @2108 NSR at 80bpm, NO ST elevation, t wave inversion V1-V2 compared to prior EKG from 07/02/18 Radiology/Procedures Radiology/Procedures [] Course & Med Decision Making Course & Med Decision Making Pertinent Labs and Imaging studies reviewed. (See chart for details) [] Dragon Disclaimer Dragon Disclaimer This electronic medical record was generated, in whole or in part, using a voice recognition dictation system. Departure Departure Impression: Primary Impression: Chest pain Additional Impression: Alcohol abuse Disposition: 01 HOME, SELF-CARE Condition: STABLE Referrals: HOLLIE EVANS MD (PCP) Patient Instructions: Alcoholic Gastritis-Brief, Chest Pain (Nonspecific), Easy -to-Read, Chronic Alcoholism, How Much is Too Much Alcohol, Qfpo-sv-Kmwi Scripts Famotidine (PEPCID) 20 Mg Tablet 20 MG PO BID for 14 Days, #28 TAB Prov: MARA FIELD DO 08/24/18 Problem Qualifiers Primary Impression: Chest pain Chest pain type: unspecified Qualified Codes: R07.9 - Chest pain, unspecified MARA FIELD DO Aug 24, 2018 00:30
--- NOTE | 2018-08-24 05:57 | EKG ---
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
== END 2018-08-24 00:45 | disposition home or self-care (01) ==
LOC: ER 21:00
DX: R07.89 Other chest pain (principal); F10.20 Alcohol dependence, uncomplicated; Y90.8 Blood alcohol level of 240 mg/100 ml or more; Z95.0 Presence of cardiac pacemaker
CPT/HCPCS: 36415; 71045; 80053; 80307; 81001; 82553; 83690; 83735; 84484; 85025; 93005; 96365; 96375; 99284; G0480; J2405; J3490; J7030

== ENCOUNTER 2018-08-28 19:58 | Emergency (ER) | payer SELFPAY ==
[~2018-08-28] VITALS: Ht 167.6 cm; Wt 79.4 kg
[~2018-08-28 19:58] MED LIST changes: +FAMO-63 PO
[2018-08-28 20:20] LABS: BASO # 0.1 x10^3/uL (0.0-0.2); BASO % 1 % (0-3); EOS % 0 % (0-3); HEMOGLOBIN 13.6 g/dL (12.0-15.5); LYMPH # 2.4 x10^3/uL (1.0-4.8); LYMPH % 33 % (24-48); MEAN CORPUSCULAR HEMOGLOBIN 33 pg (25-35); MEAN CORPUSCULAR HGB CONC 34 g/dL (31-37); MEAN CORPUSCULAR VOLUME 98 fL (79-100); MONO # 0.4 x10^3/uL (0.0-1.1); MONO % 5 % (0-9); NEUT # 4.4 x10^3uL (1.8-7.7); NEUT % 61 % (31-73); PLATELET COUNT 208 x10^3/uL (140-400); RED BLOOD COUNT 4.07 x10^6/uL (3.50-5.40); RED CELL DISTRIBUTION WIDTH 15.7 % (11.5-14.5); WHITE BLOOD COUNT 7.3 x10^3/uL (4.0-11.0)
[2018-08-28 20:30] LABS: CALCIUM 8.9 mg/dL (8.5-10.1); CREATININE 0.9 mg/dL (0.6-1.0); GFR 77.8; POTASSIUM 3.7 mmol/L (3.5-5.1)
--- NOTE | 2018-08-28 20:34 | PHYS DOC ---
Past Medical History Past Medical History: Pancreatitis Additional Past Medical Histor: DAILY ETOH (05/10), SCIATICA Past Surgical History: No Surgical History, Pacemaker Additional Past Surgical Histo: PACEMAKER Alcohol Use: Heavy Drug Use: None Adult General Chief Complaint Chief Complaint: ABDOMINAL PAIN HPI HPI Patient is a 57 year old female who presents with nausea, vomiting and alcohol intoxication. Patient states that for the past day she's been nauseous and has had multiple episodes of nonbilious nonbloody vomit. In addition to her nausea and vomiting she is also experiencing some upper abdominal pain. She states her stomach feels like it is "boiling". Patient also reports to drinking alcohol today. When asked about how much she drank she states "too much ". Patient also reported some right-sided chest pain chest pain and shortness of breath. Patient denies diarrhea, constipation, hematochezia, dysuria, or hematuria. Review of Systems Review of Systems Constitutional: Denies fever or chills [] Eyes: Denies redness or eye pain [] HENT: Denies nasal congestion or sore throat [] Respiratory: Reports shortness of breath, denies cough [] Cardiovascular: Reports chest pain, denies palpitations[] GI: Reports upper abdominal pain, nausea, and vomiting, denies bloody stools or diarrhea [] : Denies dysuria or hematuria [] Musculoskeletal: Denies back pain or joint pain [] Integument: Denies rash or skin lesions [] Neurologic: Denies headache, focal weakness or sensory changes [] Complete systems were reviewed and found to be within normal limits, except as documented in this note. Current Medications Current Medications Current Medications Medications (Trade) Dose Ordered Sig/Evelyne Start Time Stop Time Status Last Admin Dose Admin Famotidine (Pepcid Vial) 20 mg 1X ONCE 08/28/18 20:45 08/28/18 20:46 DC 08/28/18 20:43 20 MG Magnesium Sulfate 50 ml @ 25 mls/hr 1X ONCE 08/28/18 21:55 08/28/18 22:54 DC 08/28/18 21:56 25 MLS/HR Multivitamins 10 ml/Thiamine HCl 100 mg/Folic Acid 1 mg/Sodium Chloride 1,011.2 ml @ 1,000.088 mls/hr 1X ONCE 08/28/18 20:45 08/28/18 21:45 DC 08/28/18 20:57 1,000.088 MLS/HR Ondansetron HCl (Zofran) 4 mg 1X ONCE 08/28/18 20:45 08/28/18 20:46 DC 08/28/18 20:43 4 MG Allergies Allergies Allergies Coded Allergies Type Severity Reaction Last Updated Verified No Known Drug Allergies 08/17/13 No Physical Exam Physical Exam Constitutional: No acute distress, non-toxic appearance. [] HENT: Normocephalic, atraumatic, bilateral external ears normal. [] Eyes: EOMI, conjunctiva normal. [] Neck: Normal range of motion, no tenderness, supple. [] Cardiovascular:Heart rate regular rhythm, no murmur [] Lungs & Thorax: Bilateral breath sounds clear to auscultation [] Abdomen: Bowel sounds normal, soft, upper abdominal tenderness, no rebound rigidity or guarding, no peritoneal signs.[] Skin: Warm, dry, no erythema. [] Back: No tenderness, no CVA tenderness. [] Extremities: No cyanosis, no clubbing,no edema. [] Neurologic: Alert and oriented X 3, no focal deficits noted. [] Psychologic: Affect normal, mood normal. [] Current Patient Data Vital Signs Vital Signs Date Time Temp Pulse Resp B/P (MAP) Pulse Ox O2 Delivery O2 Flow Rate FiO2 08/28/18 21:58 81 20 106/55 (72) 99 08/28/18 20:02 98.5 Room Air 98.5 Lab Values Laboratory Tests Test 08/28/18 20:05 White Blood Count 7.3 x10^3/uL (4.0-11.0) Red Blood Count 4.07 x10^6/uL (3.50-5.40) Hemoglobin 13.6 g/dL (12.0-15.5) Hematocrit 40.0 % (36.0-47.0) Mean Corpuscular Volume 98 fL (79-100) Mean Corpuscular Hemoglobin 33 pg (25-35) Mean Corpuscular Hemoglobin Concent 34 g/dL (31-37) Red Cell Distribution Width 15.7 % (11.5-14.5) H Platelet Count 208 x10^3/uL (140-400) Neutrophils (%) (Auto) 61 % (31-73) Lymphocytes (%) (Auto) 33 % (24-48) Monocytes (%) (Auto) 5 % (0-9) Eosinophils (%) (Auto) 0 % (0-3) Basophils (%) (Auto) 1 % (0-3) Neutrophils # (Auto) 4.4 x10^3uL (1.8-7.7) Lymphocytes # (Auto) 2.4 x10^3/uL (1.0-4.8) Monocytes # (Auto) 0.4 x10^3/uL (0.0-1.1) Eosinophils # (Auto) 0.0 x10^3/uL (0.0-0.7) Basophils # (Auto) 0.1 x10^3/uL (0.0-0.2) Prothrombin Time 14.0 SEC (11.7-14.0) Prothrombin Time INR 1.1 (0.8-1.1) PTT 36 SEC (24-38) Sodium Level 143 mmol/L (136-145) Potassium Level 3.7 mmol/L (3.5-5.1) Chloride Level 99 mmol/L (98-107) Carbon Dioxide Level 18 mmol/L (21-32) L Anion Gap 26 (6-14) H Blood Urea Nitrogen 14 mg/dL (7-20) Creatinine 0.9 mg/dL (0.6-1.0) Estimated GFR (Cockcroft-Gault) 77.8 BUN/Creatinine Ratio 16 (6-20) Glucose Level 62 mg/dL (70-99) L Calcium Level 8.9 mg/dL (8.5-10.1) Magnesium Level 1.5 mg/dL (1.8-2.4) L Total Bilirubin 0.6 mg/dL (0.2-1.0) Aspartate Amino Transferase (AST) 47 U/L (15-37) H Alanine Aminotransferase (ALT) 38 U/L (14-59) Alkaline Phosphatase 103 U/L (46-116) Creatine Kinase 262 U/L (26-192) H Creatine Kinase MB (Mass) 1.1 ng/mL (0.0-3.6) Creatine Kinase MB Relative Index 0.4 % (0-4) Troponin I Quantitative < 0.017 ng/mL (0.000-0.055) Total Protein 8.1 g/dL (6.4-8.2) Albumin 4.0 g/dL (3.4-5.0) Albumin/Globulin Ratio 1.0 (1.0-1.7) Lipase 52 U/L (73-393) L Ethyl Alcohol Level 369 mg/dL (0-10) H Laboratory Tests 08/28/18 20:05 Laboratory Tests 08/28/18 20:05 EKG EKG @2015 Sinus rhythm with arrhythmia (premature complexes) at 72bpm, slight slurring/elevation of ST segment in V3-V4 with associated deep t waves in V2-V4 , compared to prior EKG from 08/23/18 which noted the t wave inversions but ST segment less evident. Radiology/Procedures Radiology/Procedures [] Course & Med Decision Making Course & Med Decision Making 49-year-old female reported to the emergency department due to multiple complaints as well as alcohol intoxication. Initial exam patient was complaining of some belly pain as well as some chest pain or shortness of breath. Labs were obtained and posted to chart. Pertinent Labs reviewed. EKG didn't demonstrated slight slurring of ST segment as well as T-wave inversion. This was slightly different from previous EKG. Symptomatic treatment provided with interval improvement. Due to recent visit to ER for similar symptoms as well as slight changes in EKG and inability to completely rule out cardiac disease admission was offered to patient. Patient declined admission at this time and stated she would like to go home. Discussed with patient importance of decreasing her alcohol intake and following up with primary care doctor to get further workup. Patient stable for discharge with outpatient follow-up with PCP. Discussed findings and plan with patient and family, who acknowledge understanding and agreement. [] Dragon Disclaimer Dragon Disclaimer This electronic medical record was generated, in whole or in part, using a voice recognition dictation system. Departure Departure Impression: Primary Impression: Alcohol intoxication Additional Impression: Upper abdominal pain Disposition: HOME, SELF-CARE Condition: STABLE Referrals: HOLLIE EVANS MD (PCP) Patient Instructions: Abdominal Pain, Alcohol Intoxication, Eitv-if-Yhje Scripts Famotidine (PEPCID) 20 Mg Tablet 20 MG PO BID, #20 TAB Prov: MARA FIELD Era BURNS 08/28/18 Problem Qualifiers Primary Impression: Alcohol intoxication Complication of substance-induced condition: uncomplicated Qualified Codes: F10.920 - Alcohol use, unspecified with intoxication, uncomplicated MARA FIELD DO Aug 28, 2018 20:34
[2018-08-28 20:36] LABS: MAGNESIUM 1.5 mg/dL (1.8-2.4); TOTAL BILIRUBIN 0.6 mg/dL (0.2-1.0); TOTAL PROTEIN 8.1 g/dL (6.4-8.2)
[2018-08-28] MEDS ORDERED: MULTIVIT INFUSN,ADULT 4,VIT K 10 ML, THIAMINE INJ 100 MG, FOLIC ACID INJ 1 MG in IV NOR... IV ONE (20:45)
[2018-08-28] MEDS ORDERED: ONDANSETRON PF 4 MG/2 ML VIAL. IV ONE (20:45)
[2018-08-28] MEDS ORDERED: FAMOTIDINE 20 MG/2 ML VIAL IVP ONE (20:45)
[2018-08-28] MEDS ORDERED: MAGNESIUM SULFATE 2GM 50 ML IV ONE (21:55)
[2018-08-28 21:58] VITALS: BP 106/55
[2018-08-28] MEDS ORDERED: FAMO-63 PO (22:29)
--- NOTE | 2018-08-29 17:00 | EKG ---
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
== END 2018-08-28 22:50 | disposition home or self-care (01) ==
LOC: ER 19:58
DX: F10.229 Alcohol dependence with intoxication, unspecified (principal); R10.10 Upper abdominal pain, unspecified; R11.2 Nausea with vomiting, unspecified; R07.89 Other chest pain; R06.02 Shortness of breath; Z95.0 Presence of cardiac pacemaker
CPT/HCPCS: 36415; 80053; 82553; 83690; 83735; 84484; 85025; 85610; 85730; 93005; 96365; 96367; 96375; 99284; G0480; J2405; J3475; J3490; J7030

== ENCOUNTER 2019-03-04 17:41 | Emergency (ER) | payer SELFPAY ==
[~2019-03-04] VITALS: Ht 162.6 cm; Wt 90.7 kg
[2019-03-04] MEDS ORDERED: ONDANSETRON PF 4 MG/2 ML VIAL. IV ONE (18:00)
[2019-03-04] MEDS ORDERED: IV NORMAL SALINE 1000ML BAG 1,000 ML IV ONE (18:00)
[2019-03-04 18:12] LABS: BASO % 1 % (0-3); EOS % 0 % (0-3); HEMATOCRIT 40.6 % (36.0-47.0); HEMOGLOBIN 14.1 g/dL (12.0-15.5); LYMPH # 2.1 x10^3/uL (1.0-4.8); LYMPH % 41 % (24-48); MEAN CORPUSCULAR HEMOGLOBIN 35 pg (25-35); MEAN CORPUSCULAR HGB CONC 35 g/dL (31-37); MEAN CORPUSCULAR VOLUME 100 fL (79-100); MONO # 0.3 x10^3/uL (0.0-1.1); MONO % 7 % (0-9); NEUT # 2.7 x10^3/uL (1.8-7.7); NEUT % 52 % (31-73); PLATELET COUNT 188 x10^3/uL (140-400); RED BLOOD COUNT 4.06 x10^6/uL (3.50-5.40); RED CELL DISTRIBUTION WIDTH 15.6 % (11.5-14.5); WHITE BLOOD COUNT 5.2 x10^3/uL (4.0-11.0)
[2019-03-04] MEDS ORDERED: FOLIC ACID 1 MG TABLET. PO STA (18:18)
[2019-03-04] MEDS ORDERED: THIAMINE 100 MG TABLET. PO STA (18:18)
--- NOTE | 2019-03-04 18:18 | PHYS DOC ---
Past Medical History Past Medical History: Pancreatitis Additional Past Medical Histor: DAILY ETOH (05/10), SCIATICA (MARA METZ APRN) Past Surgical History: No Surgical History, Pacemaker Additional Past Surgical Histo: PACEMAKER (MARA METZ APRN) Alcohol Use: Heavy Drug Use: None (MARA METZ APRN) Adult General Chief Complaint Chief Complaint: CHEST PAIN HPI HPI Patient is a 58 year old female who presents with multiple complaints. The patient states that she's been having right-sided chest pain, back pain, nausea, vomiting, throwing up blood this morning around 2 AM. Coincidently around 2 AM the patient states that she was getting ready go to bed and finishing up drinking for the night and had a half of a fifth of vodka. She also had other alcohols well including beer. States that she also drank earlier in the night and she couldn't remember what she had. (MARA METZ APRN) Review of Systems Review of Systems Constitutional: Denies fever or chills [] Eyes: Denies change in visual acuity, redness, or eye pain [] HENT: Denies nasal congestion or sore throat [] Respiratory: Denies cough or shortness of breath [ Cardiovascular: No additional information not addressed in HPI [] GI: Denies abdominal pain, bloody stools or diarrhea [] but reports nausea, vomiting, : Denies dysuria or hematuria [] Musculoskeletal: Reports chronic back pain. Integument: Denies rash or skin lesions [] Neurologic: Denies headache, focal weakness or sensory changes [] Endocrine: Denies polyuria or polydipsia [] Complete systems were reviewed and found to be within normal limits, except as documented in this note. (MARA METZ APRN) Current Medications Current Medications Current Medications Medications (Trade) Dose Ordered Sig/Evelyne Start Time Stop Time Status Last Admin Dose Admin Enoxaparin Sodium (Lovenox 100mg Syringe) 90 mg 1X ONCE 03/04/19 21:30 03/04/19 21:31 Folic Acid (Folic Acid) 1 mg 1X STAT 03/04/19 18:18 03/04/19 18:19 UNV Iohexol (Omnipaque 350 Mg/ml) 100 ml 1X ONCE 03/04/19 18:45 03/04/19 18:47 DC 03/04/19 19:10 100 ML Ondansetron HCl (Zofran) 4 mg 1X ONCE 03/04/19 18:00 03/04/19 18:01 DC 03/04/19 18:18 4 MG Sodium Chloride 1,000 ml @ 1,000 mls/hr 1X ONCE 03/04/19 18:00 03/04/19 18:59 DC 03/04/19 18:19 1,000 MLS/HR Thiamine Mononitrate (Vitamin B-1) 100 mg 1X STAT 03/04/19 18:18 03/04/19 18:19 UNV (NAYELY DENIS Jr. DO) Allergies Allergies Allergies Coded Allergies Type Severity Reaction Last Updated Verified No Known Drug Allergies 08/17/13 No (NAYELY DENIS Jr. DO) Physical Exam Physical Exam Constitutional: Well developed, well nourished, no acute distress, non-toxic appearance. She smells of ETOH. HENT: Normocephalic, atraumatic, bilateral external ears normal, oropharynx moist, no oral exudates, nose normal. [] Eyes: PERRLA, EOMI, conjunctiva normal, no discharge. [] Neck: Normal range of motion, no tenderness, supple, no stridor. [] Cardiovascular:Heart rate regular rhythm, no murmur [] Lungs & Thorax: Bilateral breath sounds clear to auscultation [] Abdomen: Bowel sounds normal, soft, no tenderness, no masses, no pulsatile masses. [] Skin: Warm, dry, no erythema, no rash. [] Back: No tenderness, no CVA tenderness. [] Extremities: No tenderness, no cyanosis, no clubbing, ROM intact, no edema. [] Neurologic: Alert and oriented X 3, normal motor function, normal sensory function, no focal deficits noted. [] Psychologic: Affect normal, judgement normal, mood normal. [] (MARA METZ APRN) Current Patient Data Vital Signs Vital Signs Date Time Temp Pulse Resp B/P (MAP) Pulse Ox O2 Delivery O2 Flow Rate FiO2 03/04/19 17:41 98.4 72 16 132/86 (101) 97 Room Air 98.4 (NAYELY DENIS Jr. DO) Lab Values Laboratory Tests Test 03/04/19 18:00 03/04/19 18:40 White Blood Count 5.2 x10^3/uL (4.0-11.0) Red Blood Count 4.06 x10^6/uL (3.50-5.40) Hemoglobin 14.1 g/dL (12.0-15.5) Hematocrit 40.6 % (36.0-47.0) Mean Corpuscular Volume 100 fL (79-100) Mean Corpuscular Hemoglobin 35 pg (25-35) Mean Corpuscular Hemoglobin Concent 35 g/dL (31-37) Red Cell Distribution Width 15.6 % (11.5-14.5) H Platelet Count 188 x10^3/uL (140-400) Neutrophils (%) (Auto) 52 % (31-73) Lymphocytes (%) (Auto) 41 % (24-48) Monocytes (%) (Auto) 7 % (0-9) Eosinophils (%) (Auto) 0 % (0-3) Basophils (%) (Auto) 1 % (0-3) Neutrophils # (Auto) 2.7 x10^3/uL (1.8-7.7) Lymphocytes # (Auto) 2.1 x10^3/uL (1.0-4.8) Monocytes # (Auto) 0.3 x10^3/uL (0.0-1.1) Eosinophils # (Auto) 0.0 x10^3/uL (0.0-0.7) Basophils # (Auto) 0.0 x10^3/uL (0.0-0.2) Prothrombin Time 13.1 SEC (11.7-14.0) Prothrombin Time INR 1.0 (0.8-1.1) Activated Partial Thromboplast Time 29 SEC (24-38) D-Dimer (Vandana) 1.22 ug/mlFEU (0.00-0.50) H Sodium Level 144 mmol/L (136-145) Potassium Level 3.4 mmol/L (3.5-5.1) L Chloride Level 100 mmol/L (98-107) Carbon Dioxide Level 25 mmol/L (21-32) Anion Gap 19 (6-14) H Blood Urea Nitrogen 13 mg/dL (7-20) Creatinine 0.9 mg/dL (0.6-1.0) Estimated GFR (Cockcroft-Gault) 77.5 BUN/Creatinine Ratio 14 (6-20) Glucose Level 88 mg/dL (70-99) Calcium Level 9.8 mg/dL (8.5-10.1) Total Bilirubin 0.4 mg/dL (0.2-1.0) Aspartate Amino Transferase (AST) 118 U/L (15-37) H Alanine Aminotransferase (ALT) 77 U/L (14-59) H Alkaline Phosphatase 94 U/L (46-116) Creatine Kinase 315 U/L (26-192) H Creatine Kinase MB (Mass) 1.9 ng/mL (0.0-3.6) Creatine Kinase MB Relative Index 0.6 % (0-4) Troponin I Quantitative < 0.017 ng/mL (0.000-0.055) Total Protein 8.7 g/dL (6.4-8.2) H Albumin 4.4 g/dL (3.4-5.0) Albumin/Globulin Ratio 1.0 (1.0-1.7) Lipase 589 U/L (73-393) H Ethyl Alcohol Level 365 mg/dL (0-10) H Urine Collection Type Unknown Urine Color Yellow Urine Clarity Clear Urine pH 6.0 Urine Specific Plummer <=1.005 Urine Protein Negative mg/dL (NEG-TRACE) Urine Glucose (UA) Negative mg/dL (NEG) Urine Ketones (Stick) Trace mg/dL (NEG) Urine Blood Negative (NEG) Urine Nitrite Negative (NEG) Urine Bilirubin Negative (NEG) Urine Urobilinogen Dipstick 1.0 mg/dL (0.2 mg/dL) Urine Leukocyte Esterase Negative (NEG) Urine RBC Occ /HPF (0-2) Urine WBC 1-4 /HPF (0-4) Urine Squamous Epithelial Cells Mod /LPF Urine Bacteria 0 /HPF (0-FEW) Urine Opiates Screen Neg (NEG) Urine Methadone Screen Neg (NEG) Urine Barbiturates Neg (NEG) Urine Phencyclidine Screen Neg (NEG) Urine Amphetamine/Methamphetamine Neg (NEG) Urine Benzodiazepines Screen Neg (NEG) Urine Cocaine Screen Neg (NEG) Urine Cannabinoids Screen Neg (NEG) Urine Ethyl Alcohol Pos (NEG) Laboratory Tests 03/04/19 18:00 Laboratory Tests 03/04/19 18:00 (NAYELY DENIS Jr. DO) Lab Values Laboratory Tests Test 03/04/19 18:00 03/04/19 18:40 White Blood Count 5.2 x10^3/uL (4.0-11.0) Red Blood Count 4.06 x10^6/uL (3.50-5.40) Hemoglobin 14.1 g/dL (12.0-15.5) Hematocrit 40.6 % (36.0-47.0) Mean Corpuscular Volume 100 fL (79-100) Mean Corpuscular Hemoglobin 35 pg (25-35) Mean Corpuscular Hemoglobin Concent 35 g/dL (31-37) Red Cell Distribution Width 15.6 % (11.5-14.5) H Platelet Count 188 x10^3/uL (140-400) Neutrophils (%) (Auto) 52 % (31-73) Lymphocytes (%) (Auto) 41 % (24-48) Monocytes (%) (Auto) 7 % (0-9) Eosinophils (%) (Auto) 0 % (0-3) Basophils (%) (Auto) 1 % (0-3) Neutrophils # (Auto) 2.7 x10^3/uL (1.8-7.7) Lymphocytes # (Auto) 2.1 x10^3/uL (1.0-4.8) Monocytes # (Auto) 0.3 x10^3/uL (0.0-1.1) Eosinophils # (Auto) 0.0 x10^3/uL (0.0-0.7) Basophils # (Auto) 0.0 x10^3/uL (0.0-0.2) Prothrombin Time 13.1 SEC (11.7-14.0) Prothrombin Time INR 1.0 (0.8-1.1) Activated Partial Thromboplast Time 29 SEC (24-38) D-Dimer (Vandana) 1.22 ug/mlFEU (0.00-0.50) H Sodium Level 144 mmol/L (136-145) Potassium Level 3.4 mmol/L (3.5-5.1) L Chloride Level 100 mmol/L (98-107) Carbon Dioxide Level 25 mmol/L (21-32) Anion Gap 19 (6-14) H Blood Urea Nitrogen 13 mg/dL (7-20) Creatinine 0.9 mg/dL (0.6-1.0) Estimated GFR (Cockcroft-Gault) 77.5 BUN/Creatinine Ratio 14 (6-20) Glucose Level 88 mg/dL (70-99) Calcium Level 9.8 mg/dL (8.5-10.1) Total Bilirubin 0.4 mg/dL (0.2-1.0) Aspartate Amino Transferase (AST) 118 U/L (15-37) H Alanine Aminotransferase (ALT) 77 U/L (14-59) H Alkaline Phosphatase 94 U/L (46-116) Creatine Kinase 315 U/L (26-192) H Creatine Kinase MB (Mass) 1.9 ng/mL (0.0-3.6) Creatine Kinase MB Relative Index 0.6 % (0-4) Troponin I Quantitative < 0.017 ng/mL (0.000-0.055) Total Protein 8.7 g/dL (6.4-8.2) H Albumin 4.4 g/dL (3.4-5.0) Albumin/Globulin Ratio 1.0 (1.0-1.7) Lipase 589 U/L (73-393) H Ethyl Alcohol Level 365 mg/dL (0-10) H Urine Opiates Screen Neg (NEG) Urine Methadone Screen Neg (NEG) Urine Barbiturates Neg (NEG) Urine Phencyclidine Screen Neg (NEG) Urine Amphetamine/Methamphetamine Neg (NEG) Urine Benzodiazepines Screen Neg (NEG) Urine Cocaine Screen Neg (NEG) Urine Cannabinoids Screen Neg (NEG) Urine Ethyl Alcohol Pos (NEG) Laboratory Tests 03/04/19 18:00 Laboratory Tests 03/04/19 18:00 (MARA METZ APRN) EKG EKG EKG interpreted by Dr. Rodriguez Sinus with rate of 81 mg, no STEMI. (MARA METZ APRN) Radiology/Procedures Radiology/Procedures [] (MARA METZ APRN) Impressions: PROCEDURE: CT ANGIOGRAPHY CHEST Exam: CT of chest with contrast INDICATION: Chest pain TECHNIQUE: Sequential axial images through the chest obtained following the administration of 100 mL of Omni 350 IV contrast. Sagittal and coronal reformatted images were reconstructed from the axial data and reviewed. 3-D reformatted images were reconstructed from the axial data and reviewed. Comparisons: None FINDINGS: Visualized portions of the thyroid are unremarkable. Calcified hilar lymph nodes are seen. Heart size is normal. No pericardial effusion. Thoracic aorta has a normal course and caliber. Pulmonary artery is not enlarged. There is stenosis of right upper lobe pulmonary artery branches with complete occlusion of the distal segmental and subsegmental branches. Prominent right bronchial artery is noted. Airways are patent. No consolidation or pneumothorax. Mild centrilobular emphysematous change noted at the upper lungs. Several scattered 2 to 3 mm pulmonary nodules are noted in the lungs with largest lung nodule measuring 4 mm in the right upper lobe series 3 image 44. No pleural effusion or thickening. Severe diffuse hepatic steatosis. No suspicious osseous lesions or acute fractures. IMPRESSION: 1. Complete nonopacification of segmental and subsegmental branches in the right upper lobe. This likely represents thrombosis secondary to stenosis/occlusion of a segmental branch of the right upper lobe pulmonary artery. 2. Calcified right suprahilar lymphadenopathy with adjacent scarring. Correlate for prior treatment history. Alternatively this could be secondary to atypical infection with resultant fibrosis. 3. Large right bronchial artery, likely representing collateral flow. 4. Several pulmonary nodules as described above, largest measuring up to 4 mm. In a low-risk patient no further follow-up imaging is recommended. In a high-risk patient optional one-year follow-up CT can BE performed. Exposure: One or more of the following in the visualized dose reduction techniques were utilized for this examination: 1. Automated exposure control 2. Adjustment of the MA and/or KV according to patient size 3. Use of iterative of reconstructive technique Electronically signed by: Amalia Skelton MD (03/04/2019 7:32 PM) [facility] DICTATED and SIGNED BY: AMALIA SKELTON MD DATE: 03/04/191931 (NAYELY DENIS Jr. DO) Course & Med Decision Making Course & Med Decision Making Pertinent Labs and Imaging studies reviewed. (See chart for details) Will get labs, tox, d-dimer, cardiac enzymes, EKG, Chest x-ray and give supporti ve care. Labs are unremarkable with the exception of D dimer of 1.22 and ETOH of 365. Will get CT of Chest. Turned care over to Dr. Denis at 1900. (MARA METZ APRN) Dragon Disclaimer Dragon Disclaimer This electronic medical record was generated, in whole or in part, using a voice recognition dictation system. (MARA METZ APRN) Departure Departure Impression: Primary Impression: Intoxication Additional Impressions: Chest pain Pulmonary embolism Disposition: 07 AGAINST MEDICAL ADVICE Condition: IMPROVED Referrals: HOLLIE EVANS MD (PCP) Patient Instructions: Pulmonary Embolus Additional Instructions: You are leaving the hospital AGAINST MEDICAL ADVICE. You should return to the emergency room as soon as possible. Scripts Rivaroxaban (XARELTO) 15 Mg Tablet 1 TAB PO BID for 21 Days, #42 TAB 0 Refills Prov: NAYELY DENIS Jr. DO 03/04/19 Problem Qualifiers Additional Impressions: Pulmonary embolism Pulmonary embolism type: unspecified Chronicity: acute Acute cor pulmonale presence: without acute cor pulmonale Qualified Codes: I26.99 - Other pulmonary embolism without acute cor pulmonale MARA METZ APRN Mar 04, 2019 18:18 NAYELY DENIS Jr. DO Mar 04, 2019 21:08
[2019-03-04 18:25] LABS: PROTHROMBIN TIME PATIENT 13.1 SEC (11.7-14.0)
[2019-03-04 18:29] LABS: CALCIUM 9.8 mg/dL (8.5-10.1); CREATININE 0.9 mg/dL (0.6-1.0); GFR 77.5; POTASSIUM 3.4 mmol/L (3.5-5.1)
[2019-03-04 18:35] LABS: ALBUMIN 4.4 g/dL (3.4-5.0); TOTAL BILIRUBIN 0.4 mg/dL (0.2-1.0); TOTAL PROTEIN 8.7 g/dL (6.4-8.2)
[2019-03-04 18:36] LABS: D-DIMER 1.22 ug/mlFEU (0.00-0.50)
[2019-03-04] MEDS ORDERED: IOHEXOL 350 MG/ML 100 ML VIAL. IV ONE (18:45)
[2019-03-04 18:51] LABS: BILIRUBIN,URINE NEGATIVE (NEG); CLARITY,URINE CLEAR; COLOR,URINE YELLOW; NITRITE,URINE NEGATIVE (NEG); PROTEIN,URINE NEGATIVE (NEG-TRACE)
[2019-03-04 18:59] LABS: BARBITURATES NEG (NEG); BENZODIAZEPINES NEG (NEG); CANNABINOIDS NEG (NEG); COCAINE NEG (NEG); METHADONE NEG (NEG); OPIATES NEG (NEG); PHENCYCLIDINE NEG (NEG)
[2019-03-04 19:00] LABS: AMPHETAMINE/METHAMPHETAMINE NEG (NEG)
[2019-03-04] MEDS ORDERED: THIAMINE 100 MG TABLET. PO SCH (19:00)
[2019-03-04] MEDS ORDERED: FOLIC ACID 1 MG TABLET. PO SCH (19:00)
[2019-03-04 19:09] LABS: BACTERIA,URINE 0 /HPF (0-FEW); RBC,URINE OCC /HPF (0-2); SQUAMOUS EPITHELIAL CELL,UR MOD /LPF
--- NOTE | 2019-03-04 19:23 | RAD ---
CHEST PA LATERAL History: Weak and short of breath. Comparison: August 23, 2018. Findings: No consolidation or pleural effusion. Normal heart size. Right sided pacemaker, unchanged. Impression: 1. No acute cardiopulmonary process. Electronically signed by: Osvaldo Larsen DO (03/04/2019 7:20 PM) [facility]
--- NOTE | 2019-03-04 19:35 | RAD ---
Exam: CT of chest with contrast INDICATION: Chest pain TECHNIQUE: Sequential axial images through the chest obtained following the administration of 100 mL of Omni 350 IV contrast. Sagittal and coronal reformatted images were reconstructed from the axial data and reviewed. 3-D reformatted images were reconstructed from the axial data and reviewed. Comparisons: None FINDINGS: Visualized portions of the thyroid are unremarkable. Calcified hilar lymph nodes are seen. Heart size is normal. No pericardial effusion. Thoracic aorta has a normal course and caliber. Pulmonary artery is not enlarged. There is stenosis of right upper lobe pulmonary artery branches with complete occlusion of the distal segmental and subsegmental branches. Prominent right bronchial artery is noted. Airways are patent. No consolidation or pneumothorax. Mild centrilobular emphysematous change noted at the upper lungs. Several scattered 2 to 3 mm pulmonary nodules are noted in the lungs with largest lung nodule measuring 4 mm in the right upper lobe series 3 image 44. No pleural effusion or thickening. Severe diffuse hepatic steatosis. No suspicious osseous lesions or acute fractures. IMPRESSION: 1. Complete nonopacification of segmental and subsegmental branches in the right upper lobe. This likely represents thrombosis secondary to stenosis/occlusion of a segmental branch of the right upper lobe pulmonary artery. 2. Calcified right suprahilar lymphadenopathy with adjacent scarring. Correlate for prior treatment history. Alternatively this could be secondary to atypical infection with resultant fibrosis. 3. Large right bronchial artery, likely representing collateral flow. 4. Several pulmonary nodules as described above, largest measuring up to 4 mm. In a low-risk patient no further follow-up imaging is recommended. In a high-risk patient optional one-year follow-up CT can BE performed. Exposure: One or more of the following in the visualized dose reduction techniques were utilized for this examination: 1. Automated exposure control 2. Adjustment of the MA and/or KV according to patient size 3. Use of iterative of reconstructive technique Electronically signed by: Amalia Baumann MD (03/04/2019 7:32 PM) [facility]
[2019-03-04 20:45] VITALS: BP 126/81
[2019-03-04] MEDS ORDERED: RIVA15TA PO (21:25)
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
== END 2019-03-04 21:25 | disposition left against medical advice (07) ==
LOC: ER 17:41
DX: F10.229 Alcohol dependence with intoxication, unspecified (principal); Y90.8 Blood alcohol level of 240 mg/100 ml or more; I26.99 Other pulmonary embolism without acute cor pulmonale; R07.89 Other chest pain; R11.2 Nausea with vomiting, unspecified; G89.29 Other chronic pain; M54.89 Other dorsalgia; Z95.0 Presence of cardiac pacemaker
CPT/HCPCS: 36415; 71046; 71275; 80053; 80307; 81001; 82553; 83690; 84484; 85025; 85379; 85610; 85730; 93005; 96361; 96372; 96374; 99285; G0480; J1650; J2405; J7030; Q9967

== ENCOUNTER 2019-03-12 00:16 | Emergency (ER) | payer SELFPAY ==
[~2019-03-12] VITALS: Ht 167.6 cm; Wt 81.6 kg
[~2019-03-12 00:16] MED LIST changes: +RIVA15TA PO
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
[2019-03-12 02:24] VITALS: BP 162/86
[2019-03-12] MEDS ORDERED: ACETAMINOPHEN 500 MG TABLET PO ONE (02:45)
== END 2019-03-12 03:00 | disposition home or self-care (01) ==
LOC: ER 00:16 → EEVIPCON 00:16 → ER 03:00
DX: S00.03XA Contusion of scalp, initial encounter (principal); F10.229 Alcohol dependence with intoxication, unspecified; Y90.9 Presence of alcohol in blood, level not specified; I10 Essential (primary) hypertension; I25.10 Atherosclerotic heart disease of native coronary artery without angina pectoris; E78.5 Hyperlipidemia, unspecified; Z95.0 Presence of cardiac pacemaker; Y04.8XXA Assault by other bodily force, initial encounter; Y93.89 Activity, other specified; Y92.89 Other specified places as the place of occurrence of the external cause; Y99.8 Other external cause status
CPT/HCPCS: 70450; 72125; 99284